=== PATIENT | male | born 1990 | race Caucasian/White ===

== ENCOUNTER 2017-08-02 18:16 | Inpatient (IN) | payer OTHER ==
[2017-08-02] VITALS (8 sets, daily range): BP systolic 143–164; BP diastolic 72–97; PULSE 75–95; RESP 14–17; O2SAT 95–100
[~2017-08-02] VITALS: Ht 180.3 cm; Wt 109.8 kg
[~2017-08-02 18:16] MED LIST: Lactated Ringer's 1,000 ML IV ONE
--- NOTE | 2017-08-02 18:48 | ED.REPORT ---
HPI-General Illness Date of Service Aug 02, 2017 ED Provider: Dr. Zapata The pt is a 27 y/o male with a hx of PTSD with blackouts and seizure disorder who presents to the ED via EMS complaining of waxing and waning diffuse abdominal pain after he swallowed push pins and screws secondary to his PTSD blackout about 7 hours ago. He describes it as 8/10 sharp and aching pain which worsens with movement and palpation. He has not eaten anything since. Associated sx include 2 episodes of diarrhea and hematemesis today. The pt also reports severe anxiety in the ED. He reports recurrent PTSD blackout episodes during which he often does things he does not remember including foreign body ingestion in the past. The pt was last seen for similar sx yesterday at [facility], where his chest and abdomen X-ray yesterday showed numerous metallic foreign bodies within the small bowel without perforation. Nursing Notes Stated Complaint: ABDOMINAL PAIN Nursing Notes Reviewed: Yes Allergies: Coded Allergies: acetaminophen (Verified Allergy, Severe, swelling of the throat, 08/02/17) General Time Seen by MD: 18:48 Chief Complaint Abdominal pain Hx Obtained From: Patient Arrived By: Ambulance Sudden in Onset?: No Onset Occurred: 5 - 8 hours ago Symptom Duration: Waxes and wanes Location: : Abdomen Quality: Aching, Sharp Radiation: : Does not radiate Severity: Current: Pain level 8 out of 10 Severity: Maximum: Severe Recent Healthcare: Recent doctor visit, Recent hospitalization Similar Sx Previous: Yes Past Medical History Past Medical History PTSD Traumatic brain injury Chornic abdominal pain 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 Peptic ulcer disease Depression Multiple hospitalizations for GI bleeds for a variety of reasons including M-W tear, gastritis, bleeding PUD Past Surgical History Multiple abdominal surgeries Reports: Appendectomy Smoking History Current Every Day Smoker Social History Alcohol Use: Denies alcohol use Drug Use: Denies drug use Ambulatory Status Independent Review of Systems Full Review of Systems Constitutional: Denies: Fever Eyes: Denies: Visual loss bilateral Ears / Nose / Throat: Denies: Sore throat Respiratory: Denies: Shortness of breath Cardiovascular: Denies: Chest pain GI: Reports: Abdominal pain, Diarrhea, Hematemesis, Vomiting Male: Denies Hematuria Musculoskeletal: Denies: Back pain Endocrine: Denies: Polyuria Skin: Denies Rash Allergy / Immune: Denies: Itching Neurologic: Denies: Headache Psychiatric: Reports: Anxiety, Unable to control self, Denies: Suicidal ideation Complete sys rev & neg: except as marked. Physical Exam Nursing note and vitals reviewed. Constitutional: Well-developed, well-nourished. Not diaphoretic. Head: Normocephalic and atraumatic. Mouth/Throat: Oropharynx is clear. Mucous membranes are dry. No oropharyngeal exudate. Eyes: EOM are normal. Pupils are equal, round, and reactive to light. Neck: Supple, no tracheal deviation. Cardiovascular: Normal rate, regular rhythm. Equal and intact distal pulses throughout. Pulmonary/Chest: Effort normal and breath sounds normal. No respiratory distress. Abdominal: Soft. No distension. There is moderate tenderness to palpation throughout the abdomen without focal tenderness. There is no rebound or guarding. Bowel sounds present. Musculoskeletal: Range of motion grossly intact, moving all extremities. No edema or tenderness appreciated. Neurological: AOx3. Grossly nonfocal exam. Strength and sensation intact and equal to bilateral upper and lower extremities. Skin: Warm and dry, no rashes or pallor appreciated. Psychiatric: Somewhat flat affect. Denies suicidal ideations. Impulsive. Vital Signs Vital Signs Date Time Temp Pulse Resp B/P Pulse Ox O2 Delivery O2 Flow Rate FiO2 08/02/17 19:30 95 17 148/72 96 Nasal Cannula 2 08/02/17 18:57 36.1 92 15 143/72 95 Room Air Initial VS: Reviewed Interpretation & Diagnostics Lab Results Interpretation Result Diagram: 08/02/17204908/02/172049 ECG Interpretation ECG Interpretation: Normal sinus rhythm. Rate 90. IVCD, consider atypical RBBB Probable left ventricular hypertrophy. Time: 19:35 Interpreted by: ED physician CT Abd / Pelvis Interpretation IMPRESSION: 1. Multiple metallic densities predominantly within the small bowel although there is cecal involvement as described above. Given distribution and appearance of metallic densities, findings are suspicious for ingested foreign bodies. There is no visualized free air or free fluid to indicate gross perforation. Dictated by: Liz Dang M.D. on 08/02/2017 at 19:53 Approved by: Liz Dang M.D. on 08/02/2017 at 19:57 Study type: Abdominal CT IV contrast Interpretation / Wet Read by: Interpret - Radiologist Re-Eval/Medical Decision Med Decision/Clinical Course In summary, 27-year-old male with a history of PTSD and compulsive foreign body ingestions presenting to the ED after ingesting multiple pushpins and other metallic foreign bodies earlier today. Evaluated immediately upon arrival to the ED. Gastroenterology aware of the patient prior to his arrival and Dr. Ellsworth here to evaluate him upon his arrival as well. Patient does have significant tenderness, however unclear if he has landry peritonitis at this time. Obvious concern for perforation. Emergent repeat CT scan obtained on the recommendation of Dr. Ellsworth, which demonstrates multiple metallic densities in the small bowel and in the cecum concerning for ingested foreign bodies, however no visualized free air or free fluid to indicate gross perforation. Patient given IV fluids, Dilaudid, Ativan, Zofran, and Zosyn here in the emergency department. Laboratory studies notable for white blood cell count of 11.1, hemoglobin of 13.3, lactic acid of 3.2. I also discussed the case with Dr. Tamayo. After discussion with Dr. Tamayo, the decision was made to take the patient to the operating room for surgical exploration and likely endoscopy. Patient agreeable to the plan as stated, no further questions. Time of Eval: 19:00 Re-Evaluation/Progress Note: Rechecked the pt. Discussed plan to do a CT. The pt understands and agrees with the plan. All questions answered. Time of Eval: 19:20 Re-Evaluation/Progress Note: Rechecked pt. Discussed diagnosis and plan to admit for surgery. The pt understands and agrees with the plan for admission. All questions addressed. Time of Eval: 19:38 Re-Evaluation/Progress Note: Dr. Worthy at bedside. He will take the pt to the OR. Consultation #1: Referral / Consult Name: Garrett Ellsworth MD Call Returned at: 19:04 Scales Inspector: Agrees with eval, Agrees with plan Note: Dr. Ellsworth recommends CT scan, surgery consult and broad spectrum antibiotics. Consultation #2: Referral / Consult Name: Garrett Worthy MD Consulted With: Surgeon Call Returned at: 19:04 Scales Inspector: Will see patient, Agrees with eval, Agrees with plan Note: Dr. Worthy will see the pt in the ED today. Counseled Regarding: Diagnosis, Lab results, Need for admission Discharge & Departure Primary Impression: Peritonitis (acute) generalized Disposition: ADMITTED TO HOSPITAL Crit Care Except Billable Proc Time Spent: 30-74 minutes Services Performed: Patient management by me, Time spent at bedside, Reviewing test results, Reviewing imaging, Discussing patient care, Documentation in record, Time with fam/surrogate Critical Care Notes: Please see MDM. 35 minutes of critical care time was spent in the management of this patient. Scribe Attestation Portions of this note were transcribed by Ventura Botello. I,, personally performed the history,physical exam and medical decision-making;I reviewed and confirmed the accuracy of the information in the transcribed note. Signed by lAdo Ralph. 08/02/17 Abel Zapata MD Aug 02, 2017 18:48 Ventura Botello Aug 02, 2017 19:02 Ventura Botello Aug 02, 2017 19:02
[2017-08-02] MEDS ORDERED: 0.9% Sodium Chloride 1,000 ML IV ONE (18:55)
[2017-08-02] MEDS ORDERED: Ondansetron 2 mg/mL 2 mL Inj IVPUSH PRN ×3 (18:55→23:20)
[2017-08-02] MEDS ORDERED: HYDROmorphone 1 mg/mL Inj IVPUSH PRN ×2 (18:55→20:35)
[2017-08-02] MEDS ORDERED: Piperacillin-Tazo 3.375 Gm Inj 3.375 GM in Dextrose 5% Minibag Plus 50 ML IV ONE (19:00)
--- NOTE | 2017-08-02 19:59 | DRSVH ---
PROCEDURE: CT ABDOMEN AND PELVIS WITH CONTRAST ([id number]) INDICATIONS: ingested FB; ?perf TECHNIQUE: After the administration of intravenous contrast, 5 mm thick sections acquired from the diaphragm to the symphysis. 5 mm coronal and sagittal reformats were acquired. For radiation dose reduction, the following was used: automated exposure control, adjustment of mA and/or kV according to patient siz e. COMPARISON: None. FINDINGS: Image quality: Excellent. ABDOMEN: Lung bases: Dependent changes are present within the lung bases. Solid organs: Liver is mildly enlarged with steatosis. The spleen is normal in size and enhancement. Gallbladder is unremarkable. Biliary system is non dilated. Pancreas enhances normally. No adren al nodules. Kidneys demonstrate normal size and enhancement, without hydronephrosis. Peritoneum and bowel: Bowel loops demonstrate normal wall thickness and caliber. No free fluid or a ir. Multiple metallic densities are identified throughout the small bowel. The largest focus is iden tified in the jejunum/proximal third portion of the small bowel measuring approximately 23 mm. This a ppears to be a focal area of multiple overlapping metallic densities. There are approximately 15-17 a dditional foci of metallic density identified throughout the small bowel measuring approximately 18 m m in line. There is no visualized free air. There is a metallic density identified within the cecum. Nodes and vessels: No retroperitoneal or mesenteric adenopathy by size criteria. Aorta and inferior vena cava are normal in size. Miscellaneous: No ventral hernias. PELVIS: Genitourinary: Bladder wall thickness is normal. Miscellaneous: No inguinal hernias or adenopathy. Bones: No suspicious bony lesions. No vertebral body compression fractures. IMPRESSION: 1. Multiple metallic densities predominantly within the small bowel although there is cecal involveme nt as described above. Given distribution and appearance of metallic densities, findings are suspicio us for ingested foreign bodies. There is no visualized free air or free fluid to indicate gross perfo ration. Dictated by: Liz Dang M.D. on 08/02/2017 at 19:53 Approved by: Liz Dang M.D. on 08/02/2017 at 19:57
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
[2017-08-02] MEDS ORDERED: MeTOProlol 1 mg/mL 5 mL Inj ONE (20:18)
[2017-08-02] MEDS ORDERED: Ondansetron 2 mg/mL 2 mL Inj ONE (20:18)
[2017-08-02] MEDS ORDERED: fentaNYL-PF 50 mCg/mL 2 mL Inj ONE (20:18)
[2017-08-02] MEDS ORDERED: Propofol 10,000 mCg/mL 20 mL Inj ONE (20:18)
[2017-08-02] MEDS ORDERED: Succinylcholine Chloride 20 mg/mL 5 mL Inj ONE (20:18)
[2017-08-02] MEDS ORDERED: Neostigmine 1 mg/mL 10 mL Inj ONE (20:18)
[2017-08-02] MEDS ORDERED: Glycopyrrolate 0.2 MG/ML 1mL Inj ONE (20:18)
[2017-08-02] MEDS ORDERED: Rocuronium 10 mg/mL 5 mL Inj ONE (20:18)
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
[2017-08-02] MEDS ORDERED: Lactated Ringer's 500 ML IV PRN (20:33)
[2017-08-02] MEDS ORDERED: Lactated Ringer's 1,000 ML IV SCH (20:33)
[2017-08-02] MEDS ORDERED: Phenylephrine 10,000 mCg/mL Inj IVPUSH PRN (20:35)
[2017-08-02] MEDS ORDERED: Dexamethasone 4 mg/mL Inj IVPUSH PRN (20:35)
[2017-08-02] MEDS ORDERED: Atropine 0.4 mg/mL Inj IVPUSH PRN (20:35)
[2017-08-02] MEDS ORDERED: MetoCLOpramide 5 mg/mL 2 mL Inj IVPUSH PRN ×2 (20:35→23:20)
[2017-08-02] MEDS ORDERED: EPHEDrine Sulfate 50 mg/mL Inj IVPUSH PRN (20:35)
[2017-08-02] MEDS ORDERED: Labetalol 5 mg/mL 20 mL Inj IV PRN (20:35)
[2017-08-02] MEDS ORDERED: hydrALAZINE 20 mg/mL Inj IVPUSH PRN (20:35)
[2017-08-02] MEDS ORDERED: fentaNYL-PF 50 mCg/mL 2 mL Inj IVPUSH PRN (20:35)
[2017-08-02] MEDS ORDERED: Lactated Ringer's 1,000 ML IV ONE ×2 (20:41→23:12)
[2017-08-02 21:07] LABS: BASOPHILS % (AUTO) 0.2 % (0-3); EOSINOPHILS % (AUTO) 1.3 % (0-5); MONOCYTES % (AUTO) 6.6 % (4-12); Mean Corpuscular Volume 90.7 fL (81-100); NEUTROPHILS % (AUTO) 66.6 % (40-74); Platelet Count 208 bil/L (150-400)
[2017-08-02 21:26] LABS: INR 1.05 ratio
[2017-08-02 21:31] LABS: Magnesium 1.7 mg/dL (1.6-2.6)
[2017-08-02] MEDS ORDERED: Bupivacaine-MPF 0.5% 30 mL Inj INFILTRATE ONE (21:45)
--- NOTE | 2017-08-02 21:46 | CONS ---
[address] [address] CONSULTATION REPORT PATIENT: HORACIO ALEMAN : 1990 MR#: [id number] ADMIT: 08/02/2017 JOB ID: [id number] DATE OF SERVICE: 08/02/2017 REASON FOR CONSULTATION: Foreign body ingestion. HISTORY OF PRESENT ILLNESS: This is a 27-year-old, male with history of PTSD, seizure disorder, peptic ulcer disease, depression, who presents for consultation for foreign body ingestion. The patient states that this morning he swallowed several screws, push pins and safety pins that were open. The patient states he was having of PTSD attack. The patient states that this happened previously not too long ago and went to [facility] and underwent upper endoscopy in which patient also ingested foreign objects and upper endoscopy was normal. I have no records. The patient never had a colonoscopy. Denies family history of colon cancer, IBD or celiac disease. The patient denies rectal bleeding, nausea, vomiting, hematemesis, change in bowel habits, or unintentional weight loss. PAST MEDICAL HISTORY: As stated above. PAST SURGERIES: None. ALLERGIES TO MEDICATIONS: None. SOCIAL HISTORY: The patient denies smoking, alcohol. FAMILY HISTORY: Negative for colon cancer, IBD, or celiac disease. REVIEW OF SYSTEMS: The patient denies headache, blurred vision, nausea, vomiting, chest pain, shortness of breath. Positive for abdominal pain. No skin rash or joint pain. PHYSICAL EXAMINATION: Vital signs upon presentation: Temperature is 36.1 pulse 92, blood pressure 143/73, respiratory rate 14, satting 95% in room air. General: No apparent stress. Scars: Anicteric. Throat: Supple. Lungs: Clear to auscultation bilaterally. Cardiovascular; Regular rate. Abdomen soft, mildly distended. Diffuse pain on palpation especially in the epigastric region, normoactive bowel sounds. Extremities: No cyanosis, clubbing, or edema. CT scan of the abdomen pelvis with contrast, performed on August 02, 2017, shows multiple metallic densities, small bowel, mostly which appears to be in the third or fourth portion of the duodenum and several metallic densities seen in the cecum. No perforation is seen. ASSESSMENT AND PLAN: This is a 27-year-old, male history of posttraumatic stress disorder, seizure disorder, presents here for foreign body ingestion. I have spoken with Dr. Garrett Alas, the surgeon on-call for today and the plan is the patient will go to the OR to do an exploratory laparotomy to ensure that there is no perforation. Afterwards, we would use a pediatric colonoscope to try to retrieve any foreign body that is seen, if possible. RECOMMENDATIONS: 1. Please keep n.p.o. 2. Appreciate Dr. Garrett Worthy from General Surgery recommendations. 3. We will do an push enteroscopy with a pediatric colonoscope to try to remove any foreign body that may be visualized. PHILL
--- NOTE | 2017-08-02 23:56 | PCM.ANEP1 ---
Post Anesthesia PACU Phase 1 Assessment Date of Service: Aug 02, 2017 Vital Signs Vital Signs Date Time Temp Pulse Resp B/P Pulse Ox O2 Delivery O2 Flow Rate FiO2 08/02/17 19:30 95 17 148/72 96 Nasal Cannula 2 08/02/17 18:57 36.1 92 15 143/72 95 Room Air Anesthetic Administered: GA Level of Alertness: Sleeping, hard to arouse ARROYO's with Equal Strength: Yes Pain: No Pain Scale Score: 8 Nausea or Vomiting: No CV Function & Hydration Stable: Yes Airway Device: Oralpharangeal Airway Oxygen Delivery: Simple Mask Lungs: Normal Air Movement PACU Phase 2 Assessment Complications: No Follow up Care: N/A Patient Instructions Provided: N/A Dionicio Lambert MD Aug 02, 2017 23:56
[2017-08-03] VITALS (11 sets, daily range): BP systolic 124–155; BP diastolic 72–96; PULSE 77–98; RESP 12–16; O2SAT 92–99
[2017-08-03] MEDS: Dextrose 5% Lactated Ringer's 1,000 ML IV SCH ×3 (00:50→21:04)
[2017-08-03] MEDS: HYDROmorphone 1 mg/mL Inj IVPUSH PRN ×8 (02:13→23:08)
--- NOTE | 2017-08-03 05:20 | ENDO ---
[address] [address] ENDOSCOPY PROCEDURE PATIENT: HORACIO ALEMAN : 1990 MR#: [id number] ADMIT: 08/02/2017 JOB ID: [id number] DATE OF SERVICE: 08/02/2017 OPERATION: Push enteroscopy with removal of foreign body. PREOPERATIVE DIAGNOSIS: Foreign body ingestion. POSTOP DIAGNOSIS: Removal of four screws, two safety pins, three push pins, one wall staple. ANESTHESIA: General anesthesia. COMPLICATIONS: None. BLOOD LOSS: Minimal. DESCRIPTION OF PROCEDURE: After risks and benefits were explained to the patient, and informed consent was obtained, the patient was undergoing an ex lap in the operating room. After the ex lap was performed, a push enteroscopy was then performed. Intubated the mouth and the esophagus, the patient is intubated through the stomach into the fourth portion of the duodenum. After procedure was done, the scope was withdrawn and the procedure terminated. FINDINGS: Upon entering the esophagus, esophagus appeared normal without masses, ulcers or lesions. Z-line located 40 cm from incisors. Upon entering the stomach, the stomach also appeared normal without masses, ulcers or lesions. Retroflexion did not elucidate any evidence of foreign bodies. Upon entering the duodenum, the scope was advanced to the third to fourth portion in which four screws, three push pins, two safety pins which were open and a wall stable was identified. Using a agarwal, the various pieces were then captured by using a Cox net and an alligator forceps, and they were advanced into the agarwal and were carefully pushed into the agarwal, and the scope was then retracted in which the agarwal captured the objects and were removed safely. After all the objects were performed, the push pediatric colonoscope was then advanced again all way to the third to fourth portion to ensure there is no for other foreign body. After the procedure was done, the scope was withdrawn and the procedure terminated. IMPRESSIONS: Removal of foreign body which four screws, 3 push pins, two safety pins open and a wall staple were all removed endoscopically using a agarwal technique placed at the end of the scope and captured via a Cox net or an alligator forceps. RECOMMENDATIONS: Recommendations per general surgery consultation team. We appreciate Dr. Garrett Worthy and general surgery team in taking care of this patient with the GI team. PHILL
--- NOTE | 2017-08-03 05:42 | OP ---
[address] [address] OPERATIVE REPORT PATIENT: HORACIO ALEMAN : 1990 MR#: [id number] ADMIT: 08/02/2017 JOB ID: [id number] DATE OF SURGERY: 08/02/2017 PREOPERATIVE DIAGNOSIS(ES): Peritonitis, ingested foreign body. POSTOPERATIVE DIAGNOSIS(ES): Ingested foreign body without peritonitis and without perforation. SURGEON: Garrett Worthy MD and Brian Kline DO PROCEDURE: Laparoscopy with lysis of adhesions, facilitation of the intraoperative esophagogastroduodenoscopy with foreign body removal. INDICATIONS: This is a 27-year-old male who presents with foreign body ingestion, transferred from [facility]. In the emergency department, he gives a history of progressive abdominal pain, and is diffusely tender to palpation and percussion with some peritoneal signs, but without frankly rigid abdomen. After his CT scan demonstrates multiple foreign bodies with the largest bolus being at the 4th portion of the duodenum, but several areas in the small intestine that appeared to have foreign body imbedded in the small bowel wall. Given his examination with peritoneal signs, my concern is that he has early peritonitis and I have recommended a laparoscopic exploration with possible laparotomy and possible intraoperative endoscopy. FINDINGS: 1. assistant fitness manager was medically necessary for camera operation and retraction. 2. We found several focal areas with palpable and visible foreign bodies at laparoscopy from the ligament of Treitz down to the ileocecal valve. There was no sign of small bowel perforation and all of these intraluminal foreign bodies were able to be milked distally down towards the ileocecal valve. 3. At the completion of our laparoscopy, Dr. Ellsworth performed intraoperative EGD with removal of multiple foreign bodies from the 4th portion of the duodenum. This will be dictated under separate cover. PROCEDURE: The patient was brought to the operating room. General anesthetic was administered. The SCOAP protocol was followed. He had received perioperative Zosyn in the emergency department within one hour of our incision. The scope protocol was followed. The abdomen was prepped and draped in sterile fashion. Surgical time-out was performed. I elected not to place a Grace. We began with a Veress needle and obtained CO2 pneumoperitoneum. We then placed a periumbilical port, followed by the camera. There was minimal free fluid in the abdomen. There was no obvious perforation or inflammatory process. The bladder appeared quite full. We placed three additional ports and this allowed us to retract the transverse mesocolon upward and expose the ligament of Treitz. There was an area of odd inflammatory focus between the small bowel mesentery and the transverse mesocolon that we ended up taking down and it appeared not to be associated with any bowel lumen problem. The source was unclear. We now began running the small bowel from the ligament of Treitz distally. In the proximal jejunum, we encountered an intraluminal foreign body that we could actually see tenting through the small bowel wall. By elevation of the proximal small bowel and gentle manipulation, this foreign body moved down through the lumen of the small bowel and "milked" forcing the foreign body down distally. We now continued and demonstrated that this foreign body did not have small-bowel perforation nor was at stuck in the small bowel wall, and we left this here feeling that the best course was to leave it to be passed with peristalsis. We now ran the entire small bowel carefully from the ligament of Treitz down to the ileocecal valve encountering at least three other intraluminal metallic objects. When we got to the ileocecal valve, we stopped and went back to the ligament of Treitz. We took down the ligament of Treitz partially, and could actually visualize the intraluminal metallic objects in the 4th portion of the duodenum pushing up against the wall, but not through it. There was no sign of perforation back by the 4th portion the duodenum. We therefore proceeded to facilitate upper esophagogastroduodenoscopy by occluding the small bowel just distal to the ligament of Treitz with an atraumatic bowel clamp. This allowed for more direct insufflation of the stomach and the proximal duodenum and Dr. Ellsworth proceeded with upper endoscopy and removal of foreign bodies. His portion of the procedure will be dictated under separate cover. At the completion of his procedure, we looked once again in the abdomen. There was enough small bowel gaseous distention that we could not run the entire small bowel again, but there was no sign of intra-abdominal leak or small bowel leak. We therefore let our CO2 out and closed the wounds with absorbable suture. The patient awoke in the operating room and was transferred to the recovery room without complications. Postoperative abdominal film is pending at the time of this dictation.
--- NOTE | 2017-08-03 06:15 | PCM.PNSURG ---
Subjective Date of Service: Aug 03, 2017 Date of Service: Aug 03, 2017 Subjective: s/p ex lap and push enteroscopy with foreign body removal last night. pt complains of abdominal pain. Postop General: No Complaints Objective Vital Sign- Last 8 Hours Date Time Temp Pulse Resp B/P Pulse Ox O2 Delivery O2 Flow Rate FiO2 08/03/17 05:49 36.8 95 16 130/72 95 Nasal Cannula 0.50 08/03/17 00:56 Supplement Oxygen 08/03/17 00:56 Supplement Oxygen 08/03/17 00:25 90 12 150/89 96 Nasal Cannula 2 08/03/17 00:20 94 14 143/85 96 Nasal Cannula 2 08/03/17 00:15 90 13 147/83 96 Nasal Cannula 2 08/03/17 00:10 80 14 150/85 96 Nasal Cannula 2 08/03/17 00:05 36.2 77 14 155/96 99 Nasal Cannula 2 08/03/17 00:00 84 15 149/88 99 Nasal Cannula 3 08/02/17 23:56 Simple Mask 08/02/17 23:55 84 14 163/93 100 Nasal Cannula 3 08/02/17 23:52 36.3 88 15 143/97 100 Nasal Cannula 3.00 08/02/17 23:50 80 15 161/90 100 Simple Mask 8 08/02/17 23:45 75 15 161/97 100 Simple Mask 8 08/02/17 23:40 79 14 161/95 100 Simple Mask 8 08/02/17 23:35 36.0 76 14 164/90 100 Simple Mask 8 Intake and Output- Last 8 Hour 08/03/17 Cumulative From/Thru 07:00 08/02/17 00:20 - 08/03/17 05:02 Intake Total 702 ml 2802 ml Output Total 900 ml 902 ml Balance -198 ml 1900 ml Intake IV Total 702 ml 2802 ml Output Urine Total 900 ml 900 ml Estimated Blood Loss 2 ml General: Oriented X3 Neck: Supple Lungs: Clear to Auscultation Heart: Exam Unremarkable Abdomen: Benign, Soft, Appropriately tender, Non-distended Extremities: Distal Pulses Palpable Result Diagram: 08/02/17204908/02/172049 Assessment & Plan Impression This is a 27-year-old, male history of posttraumatic stress disorder, seizure disorder, presents here for foreign body ingestion. s/p ex lap and lysis adhesions and push enteroscopy with foreign body removal push enteroscopy 08/02- IMPRESSIONS: Removal of foreign body which four screws, 3 push pins, two safety pins open and a wall staple were all removed endoscopically using a agarwal technique placed at the end of the scope and captured via a Cox net or an alligator forceps. RECOMMENDATIONS: Recommendations per general surgery consultation team. We appreciate Dr. Garrett Worthy and general surgery team in taking care of this patient with the GI team. RECOMMENDATIONS: 1. Pain control per hospitalist team 2. Diet and recs per Gen surgery. Problems: Resuscitation Status: CPR: Attempt Resuscitation Garrett Ellsworth MD Aug 03, 2017 06:15
[2017-08-03 06:37] LABS: BASOPHILS % (AUTO) 0.2 % (0-3); MONOCYTES % (AUTO) 8.1 % (4-12); Mean Corpuscular Hemoglobin 31.7 pg (27.0-35.0); Mean Corpuscular Volume 91.4 fL (81-100); NEUTROPHILS % (AUTO) 72.1 % (40-74); Platelet Count 212 bil/L (150-400)
--- NOTE | 2017-08-03 07:18 | NUR ---
Postop Pt arrived from PACU at 0035, drowsy but arrousable. Pt reports abdominal pain at 8/10, Oxycodone and IV Dilaudid given, effective. Pt very apologetic and anxious, very worried about what people might think of him. In AM pt wanted to leave AMA because he was afraid that his meds were going to get "messed up". Pt was convinced by staff to stay and pt agrees for now. Sitter in room at all times and sharps container removed from room.
[2017-08-03] MEDS ORDERED: levETIRAcetam 500 mg Tablet PO SCH ×2 (08:30)
[2017-08-03] MEDS ORDERED: Polyethylene Glycol (PEG) 17 Gm Powder PO SCH (08:30)
[2017-08-03] MEDS ORDERED: Famotidine Inj 20 MG in IV Premix 1 EACH IV SCH (08:30)
--- NOTE | 2017-08-03 08:32 | PCM.PNSURG ---
Subjective Date of Service: Aug 03, 2017 Date of Service: Aug 03, 2017 Visit Information: Post-Op Day # 1 Date of Admission: Aug 02, 2017 at 20:17 Hospital Day # 1 Subjective: Feels anxious this morning but affect is unchanged. Apologizes for being in pain and doesn't want to ask for medicine too frequently. Endorses continued abdominal discomfort, no N/V or bowel function overnight. Conrad remains. No acute events post operatively. Required some oxygen overnight but now weaned off. Denies any desires to harm himself. Sitter at bedside. Objective Vital Sign- Last 8 Hours Date Time Temp Pulse Resp B/P Pulse Ox O2 Delivery O2 Flow Rate FiO2 08/03/17 07:57 36.6 92 16 135/90 92 Room Air 0.00 08/03/17 05:49 36.8 95 16 130/72 95 Nasal Cannula 0.50 08/03/17 00:56 Supplement Oxygen 08/03/17 00:56 Supplement Oxygen 08/03/17 00:25 90 12 150/89 96 Nasal Cannula 2 Intake and Output- Last 8 Hour 08/03/17 Cumulative From/Thru 06:58 08/02/17 00:20 - 08/03/17 05:02 Intake Total 702 ml 2802 ml Output Total 900 ml 902 ml Balance -198 ml 1900 ml IV Total 702 ml 2802 ml Output Urine Total 900 ml 900 ml Estimated Blood Loss 2 ml General: Alert, No Acute Distress, Other (Flat affect unchanged from initial encounter.) Lungs: Other (Breathing comfortably on room air.) Heart: Other (Non tachycardic) Abdomen: Other (Soft, no rigidity, incision sites are c/d/i with telfa/ tagederm and no drainage. No surrounding cellulitis. Moderately distended. No bowel tones.) Neuro: Grossly Neurologically Intact, Other (Monotone.) Catheters: Urethral 2 Way Conrad Result Diagram: 08/03/1744 08/03/1744 Diagnostics: Morning KUB not taken yet. Assessment & Plan Impression 27 yo M with PTSD, history of foreign body ingestion, seizure disorder 2/2 TBI and POD#1 from diagnostic laparoscopic with lysis of adhesions and no evidence of bowel perforation and EGD with foreign body retrieval from duodenum 2/2 ingestion of screws/pins/nails. Recovering well on POD#1. Problems: Plan - Medical hospitalist consult to assist with management of seizure disorder medications and pyschiatric history (TBI, anxiety, recurrent foreign body ingestions) - Pain: Prn ibuprofen, oxycodone. Discontinue IV pain medications. - FEN/GI: Continue mIVF until taking adequate PO then d/c. Full liquid diet. Bowel regimen senna-docusate and miralax BID scheduled. Daily KUB to track passage or remaining foreign bodies until clearance. Home daily pantoprazole for GERD symptoms. - CV/P: No issues - Psych: Continue sitter at bedside. Low risk of self harm but history of blackout episodes with impulsive behavior - needs to be monitored. Home deena, olanzapine, also takes phenytoin but dosing is unclear and not on MAR, defer management of seizure medications to hospitalist team. Has a seizure every few months or so per patient. - MSK: Ambulate TID - Renal: D/c conrad this AM - Dispo: Cannot discharge until passes all foreign bodies. Unclear whether anyone is at home with him, he says "some of the time", will get social work consult to help navigate and pending possible psychiatric evaluation Resuscitation Status: CPR: Attempt Resuscitation Brian Kline MD Aug 03, 2017 08:32 Vikas Simpson MD Aug 04, 2017 10:36 Brian Kline MD Aug 03, 2017 08:32
[2017-08-03] MEDS: PHENYTOIN 25 MG/ML PO SCH ×3 (08:52→20:35)
[2017-08-03] MEDS: Senna-Docusate 8.6-50 mg Tablet PO SCH (08:56)
--- NOTE | 2017-08-03 09:19 | DRSVH ---
PROCEDURE: X-RAY KUB ([id number]) INDICATIONS: s/p foreign body retrieval, assess baseline TECHNIQUE: One view of the abdomen acquired. COMPARISON: [facility], CT, CT ABD PELVIS W CON, 08/02/2017, 19:06. FINDINGS: Surgical changes and devices: None. Bowel: Bowel gas pattern demonstrates mild dilated appearance. Multiple linear metallic densities ar e present overlying the bowel, corresponding to densities identified on CT exam of 08/02/17. Soft tissues: No suspicious abdominal calcifications. Visualized solid organ contours appear normal in size. Bones: No suspicious bony lesions. IMPRESSION: Mild dilated appearance of small bowel suspicious for ileus versus developing partial sma ll bowel obstruction. Multiple linear metallic densities are noted overlying the bowel corresponding to CT findings of suspected ingested foreign bodies. Dictated by: Liz Dang M.D. on 08/03/2017 at 9:14 Approved by: Liz Dang M.D. on 08/03/2017 at 9:17
--- NOTE | 2017-08-03 09:27 | DRSVH ---
PROCEDURE: X-RAY KUB ([id number]) INDICATIONS: s/p foreign body retrieval, assess baseline TECHNIQUE: One view of the abdomen acquired. COMPARISON: [facility], CR, XR KUB, 08/02/2017, 23:50. FINDINGS: Surgical changes and devices: None. Bowel: Bowel gas pattern demonstrates slight prominence of small bowel loops. The previously identif ied scattered metallic densities predominantly overlying the small bowel are noted now overlying the region of the right colon. Soft tissues: No suspicious abdominal calcifications. Visualized solid organ contours appear normal in size. Bones: No suspicious bony lesions. IMPRESSION: Less prominent appearance of small bowel dilation compared to prior exam. Previous metall ic density suspected to represent foreign bodies are now overlying the right colon. Dictated by: Liz Dang M.D. on 08/03/2017 at 9:25 Approved by: Liz Dang M.D. on 08/03/2017 at 9:26
[2017-08-03] MEDS ORDERED: PHN100C PO (09:28)
[2017-08-03] MEDS ORDERED: OLAN10TA19 PO (09:28)
[2017-08-03] MEDS ORDERED: OMEP20CA11 PO (09:28)
[2017-08-03] MEDS ORDERED: KLO1T PO (09:28)
[2017-08-03] MEDS ORDERED: DEP500A PO (09:28)
[2017-08-03] MEDS ORDERED: OXYC-474 PO (09:28)
[2017-08-03] MEDS ORDERED: LEVE750T16 PO (09:28)
--- NOTE | 2017-08-03 10:39 | PCM.CHPMED ---
Subjective Date of Service: Aug 03, 2017 Primary Physician: Admitting Physician: Garrett Worthy MD Primary Care Physician: Other,Physician Attending Physician: Garrett Worthy MD Chief Complaint: Chief Complaint: FB ingestion History of Present Illness: 27-year-old male with history of multiple episode of foreign body ingestion, TBI , depression, PTSD, anxiety, seizure disorder, chronic abdominal pain with cyclic vomiting syndrome presented after he swallowed push pains and screws secondary to his PTSD attack, black out. 7 hours prior to admission, patient stated that as soon as he realized that he swallowed this foreign bodies, immediately called EMS. On initial evaluation patient had severe abdominal pain , x-ray confirmed numerous metallic foreign bodies within the small bowel without bowel perforation. Patient underwent laparoscopic surgery with endoscopy, and bodies were all removed safely by surgical service and GI service. Medicine was consulted to assess patient's medical problems, possibly neuropsychiatric evaluation. Of note, pt was first presented to [facility], according to records , pt had similar episode of FB ingestion in Jun and Jan of this year, which was believed to be from depression, PTSD. also noted that pt had numerous ED visit in [facility] 15times this year and also 3times to [facility]. During the interview, patient stated that he was severely depressed for a while although he sees his psychiatrist at [facility] weekly. There was no medication changes, he has his pillbox and arranged his medications, pretty compliant to hold his medications including Zyprexa, Klonopin. Patient denied having any suicidal ideation during the episodes and currently or homicidal ideation. Patient complained of postsurgical pain, diffusely 8 out of 10, denied any nausea, vomiting, shortness of breath. Patient was mildly drowsy but oriented 3, pain regimen is OxyContin 5 mg every 4, Dilaudid 0.5 mg every 2 when necessary, patient was wondering if she can ask for pain medicine because of this pain, but does not want to be seen as a drug seeker. Dr. Bean from psychiatry was consulted Review of Systems: Pertinent positives as noted in history of present illness. All other systems were reviewed and are negative PMH Past Medical History PMH/PSH As described above in history of present illness SH history of all colon abuse and marijuana abuse, denied any drug use, but admit occasional alcohol drinking Bedside Blood Glucose: 110 Allergies: Coded Allergies: acetaminophen (Verified Allergy, Severe, swelling of the throat, 08/02/17) Social History Hx Alcohol Use: NoHx Substance Use: NoHx Tobacco Use: Yes (Occasional cigarette use) Smoking Status: Current Every Day Smoker Exam Vital Signs Vital Sign - Last Date Time Temp Pulse Resp B/P Pulse Ox O2 Delivery O2 Flow Rate FiO2 08/03/17 07:57 36.6 92 16 135/90 92 Room Air 0.00 Intake and Output 08/02/17 08/02/17 08/03/17 Cumulative From/Thru 15:00 23:00 07:00 08/02/17 00:20 - 08/03/17 05:02 Intake Total 2000 ml 702 ml 2802 ml Output Total 2 ml 900 ml 902 ml Balance 1998 ml -198 ml 1900 ml IV Total 2000 ml 702 ml 2802 ml Output Urine Total 900 ml 900 ml Estimated Blood Loss 2 ml 2 ml Additional Information: well groomed, white young male, laying down, mildly distressed with pain no JVD, MMM, no LAD RRR, nl s1, s2 no mrg CTAB, no w,c S,ND, diffuse td, post-Laparoscopic scars sterily tapped warm, no edema, pulses 2/2 Lab and Diagnostics Result Diagram: 08/03/17 0544 08/03/17 0544 Assessment & Plan Assessment 27-year-old male with history of multiple episode of foreign body ingestion, TBI , depression, PTSD, anxiety, seizure disorder, chronic abdominal pain with cyclic vomiting syndrome presented after he swallowed push pains and screws secondary to his PTSD attack, black out. Given recurrent episode of FB ingestion , reported severe depression, pt likely benefit from comprehensive psychiatric evaluation. Pt remained seizure free since admission. no signs of systemic infection.Intraoperative findings didn't show perforation. -appreciate for psychiatric evaluation, continue home Zyprexa, Klonipin for now -continue home AEDs, dilantin, Keppra, neurocheck q4h per RN. -1:1 observation seems appropriate for now, restrain as needed per nursing staff eval -post-op pain management per surgical team, Oxycodone 5mg q4h prn, dilaudid 0.5mg q2h prn seems appropriate for now. Thank you very much for allowing us to participate in this patient's care. The hospitalist team will continue to follow this patient with you and will be available for any additional questions or concerns. Problems: Resuscitation Status: CPR: Attempt Resuscitation Time spent 65min Isis Black MD Aug 03, 2017 10:39
--- NOTE | 2017-08-03 12:08 | NUR ---
Social Work: Initial Assessment/Multidisciplinary Rounds D: EMR reviewed. Please see Initial Assessment linked to this note for more information. Pt is a 27 y/o male admitted Adal - readmit risk score not assigned - for peritonitis/viscous perforation per H&P. Pt's insurance is [facility] [email or web address]. PCP is Lynnette Wilkes MD. SW met with pt at bedside to conduct initial assessment. Pt was alert and oriented x3. SW explained role and wrote phone number on white board. SW provided [facility] Discharge Planning Checklist and encouraged pt to contact SW for any discharge planning questions. Pt discussed in multidisciplinary rounds. Pt is not medically stable for discharge at this time, MD placed Psychiatry consult. SW discussed consult with MD - Psychiatry ordered for evaluation - MD stated Psychiatry to see pt for MH consult. Based on MD order to Psychiatry to see pt, and no MD orders for MH assessment, SW to determine further discharge planning pending Psychiatric consult, no MD orders received. SW will continue to follow. Pt lives at home with his parents in [place]. Pt lives in a tri-level home with 10 stairs to enter and 10 stairs to each level. Pt has no hx at a SNF or with HH. Pt does not own or use any DME. Pt does not drive. Pt ambulates independently. Pt has dx of PTSD and TBI at baseline. Pt reports he was admitted to [facility] twice in the last year, the first time involuntarily for 7 days, the second time voluntarily for 3 days. Pt states he is on LR and is to continue following-up with MH counselor through [facility] (Deneen Munguia in [place]). Pt states his next appointment is on 08/06. Pt stated "I called the hospital after swallowing the needles because I had a PTSD attack and did not really want to . Pt stated he could have "not called the hospital and bled out but he called 911 because he made a mistake and had a PTSD attack." SW asked if pt had any concerns regarding discharge - pt declined. Pt states his Aunt [phone] works at [facility] and will provide transport at time of discharge. Pt gave verbal consent to contact Aunt [phone] for discharge planning. Pt did not give consent to contact father listed as NOK for any purpose. SW to follow-up with Aunt regarding discharge plan. A: Pt who has dx of PTSD and TBI at baseline, pt to be seen by psychiatry as ordered by MD - capacity for self care to be addressed after psychiatry consult. P: Pt anticipated to discharge with Aunt to transport via POV, pending Psychiatric consult. MD stated Psych to see pt for MH consult. Based on MD order to psychiatry to see pt, and no MD orders for MH assessment, SW to determine further discharge planning pending psychiatric consult, no MD orders received. SW will continue to follow. HERNÁN Harrison Addendum: 08/03/17 at 1224 by JEREMIAH MARS Amended: Links added.
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
--- NOTE | 2017-08-03 18:09 | NUR ---
BM/SAN/AMBULATION/MOOD Patient's Lactic 3.2 MD aware, Blood cultures drawn. San catheter removed in am and patient voiding in bathroom. Psy consult done, Dr Anderson to adjust medications, Med rec completed today information from patient's pharmacy. Patient appears anxious at times, visit with father calmed him down, sitter at all times. Patient has ambulated in garcia x3 today, one liquid BM, daily abdomen x-ray to monitor progress to foreign objects in GI. Addendum: 08/04/17 at 0746 by PETE MILLER RN Pain Patient asking for pain medication for abdominal pain regularly this shift. Up ambulating around floor multiple times before bed. Steady on feet. Patient A&OX3. Vitals stable.
[2017-08-04] MEDS: HYDROmorphone 1 mg/mL Inj IVPUSH PRN ×2 (03:22→05:37)
[2017-08-04 05:20] VITALS: BP 125/81; PULSE 93; RESP 16; O2SAT 92
--- NOTE | 2017-08-04 07:03 | PCM.PNSURG ---
Subjective Date of Service: Aug 04, 2017 Date of Service: Aug 04, 2017 Visit Information: Post-Op Day # 2 Date of Admission: Aug 02, 2017 at 20:17 Hospital Day # 2 Subjective: No acute events overnight. Tolerating liquid diet without abdominal pain, nausea or vomiting. Evaluated by medical and psych teams yesterday. Psych feels appropriate for discharge to current environment, well connected with [place] mental health services and should continue current plan for DBT therapy. Multiple loose bowel movements and passing gas yesterday. Pain well controlled. KUB this AM shows passage of all foreign bodies into the colon, in the cecum right now. Objective Vital Sign- Last 8 Hours Date Time Temp Pulse Resp B/P Pulse Ox O2 Delivery O2 Flow Rate FiO2 08/04/17 05:20 37.2 93 16 125/81 92 Room Air Intake and Output- Last 8 Hour 08/04/17 Cumulative From/Thru 06:58 08/02/17 00:20 - 08/04/17 06:51 Intake Total 4522 ml 47669 ml Output Total 2725 ml 5302 ml Balance 1797 ml 7876 ml Intake Oral 4522 ml 9076 ml IV Total 4102 ml Output Urine Total 2725 ml 5300 ml Estimated Blood Loss 2 ml # Voids 1 1 # Bowel Movements 1 2 General: Alert, Oriented X3, Cooperative Lungs: Other (Breathing comfortably on room air.) Heart: Regular Rate/Rhythm Abdomen: Soft, Appropriately tender, Non-distended, Other (Incisions are c/d/i without erythema.) Neuro: Grossly Neurologically Intact Catheters: None Result Diagram: 08/03/17 0544 08/03/17 0544 Assessment & Plan Impression 27 yo M with PTSD, history of foreign body ingestion, seizure disorder 2/2 TBI and POD#1 from diagnostic laparoscopic with lysis of adhesions and no evidence of bowel perforation and EGD with foreign body retrieval from duodenum 2/2 ingestion of screws/pins/nails. Recovering well on POD#2 with continued movement of remaining objects into likely the cecum. Problems: Plan - Appreciate medical hospitalist and psychiatric consults to assist with management of seizure disorder medications and pyschiatric history (TBI, anxiety , recurrent foreign body ingestions) - Pain: Prn ibuprofen, oxycodone. - FEN/GI: Regular diet. Bowel regimen senna-docusate and miralax BID scheduled. Daily KUB PA/Lateral to track passage of remaining foreign bodies until clearance. Home daily pantoprazole for GERD symptoms. - CV/P: No issues - Psych: Continue 1:1 sitter at bedside. Low risk of self harm but history of blackout episodes with impulsive behavior. Continue home meds. Remeron started per Psych recs. - MSK: Ambulate TID - Renal: Voiding - Dispo: Cannot discharge until passes all foreign bodies, hopefully tomorrow. Well connected with [place] psychiatric services and ongoing care, starting DBT therapy on 08/15. Resuscitation Status: CPR: Attempt Resuscitation Brian Kline MD Aug 04, 2017 07:03 Vikas Simpson MD Aug 04, 2017 10:44
[2017-08-04 08:32] VITALS: BP 131/55; PULSE 85; RESP 16; O2SAT 92
[2017-08-04] MEDS: Pantoprazole 40 mg ER24 Tablet PO SCH (08:49)
[2017-08-04] MEDS: Senna-Docusate 8.6-50 mg Tablet PO SCH (08:49)
[2017-08-04] MEDS: PHENYTOIN 25 MG/ML PO SCH ×3 (08:50→21:22)
--- NOTE | 2017-08-04 09:29 | PCM.PNMED ---
Subjective Date of Service Aug 04, 2017 Subjective pt remained stable, still has significant pain on abd, awaits passing FB per surgery Remeron was added per pt denied SI, HI, remained afebrile, no reported seizure, Exam Vital Signs Vital Sign - Last Date Time Temp Pulse Resp B/P Pulse Ox O2 Delivery O2 Flow Rate FiO2 08/04/17 08:32 36.8 85 16 131/55 92 Room Air 0.00 Intake and Output 08/03/17 08/03/17 08/04/17 Cumulative From/Thru 15:00 23:00 07:00 08/02/17 00:20 - 08/04/17 06:51 Intake Total 800 ml 5054 ml 5819 ml 72995 ml Output Total 325 ml 1350 ml 2725 ml 5302 ml Balance 475 ml 3704 ml 3094 ml 9173 ml Intake Oral 800 ml 3754 ml 4522 ml 9076 ml IV Total 1300 ml 1297 ml 5399 ml Output Urine Total 325 ml 1350 ml 2725 ml 5300 ml Estimated Blood Loss 2 ml # Voids 1 1 # Bowel Movements 1 1 2 Exam NAD, sleepy no JVD, MMM, no LAD RRR, nl s1, s2 no mrg CTAB, no w,c S,ND, diffuse td, post-Laparoscopic scars sterily tapped warm, no edema, pulses 2/2 IVs and Medications Medications Reviewed: Medications were reviewed in detail Lab and Diagnostics Result Diagram: 08/03/1744 08/03/1744 Assessment & Plan Assessment 27-year-old male with history of multiple episode of foreign body ingestion, TBI , depression, PTSD, anxiety, seizure disorder, chronic abdominal pain with cyclic vomiting syndrome presented after he swallowed push pains and screws secondary to his PTSD attack, black out. Given recurrent episode of FB ingestion , reported severe depression, pt likely benefit from comprehensive psychiatric evaluation. Pt remained seizure free since admission. no signs of systemic infection.Intraoperative findings didn't show bowel perforation. -appreciate for psychiatric evaluation, continue home Zyprexa, Klonipin prn, added Remeron. -continue home AEDs, dilantin, Keppra, neurocheck q4h per RN. -1:1 observation seems appropriate for now, -post-op pain management per surgical team, Oxycodone 5mg q4h prn, dilaudid 0.5mg q2h prn seems appropriate for now. -diet advanced to general per surgery team dispo: likely depends on surgical course, expect to pass all of FB per surgery. Thank you very much for allowing us to participate in this patient's care. The hospitalist team will continue to follow this patient with you and will be available for any additional questions or concerns. Resuscitation Status: CPR: Attempt Resuscitation Time spent 35min Isis Black MD Aug 04, 2017 09:29
--- NOTE | 2017-08-04 10:33 | DRSVH ---
PROCEDURE: X-RAY ABDOMEN WITH ERECT AND/OR DECUBITUS VIEWS ([id number]) INDICATIONS: tracking foreign bodies passing TECHNIQUE: 2 views of the abdomen were acquired. COMPARISON: [facility], CR, XR KUB, 08/03/2017, 9:10. [facility], CR, XR KUB , 08/02/2017, 23:50. [facility], CR, XR SURG FLOURO EA 30 MIN, 08/02/2017, 21:05. [facility], CT, CT ABD PELVIS W CON, 08/02/2017, 19:06. FINDINGS: Surgical changes and devices: None. Bowel: No pneumoperitoneum. The bowel gas pattern is normal. Multiple metallic densities remain ov erlying the right colon, unchanged compared to prior exam. Soft tissues: No masses; visualized solid organ contours appear normal in size. No suspicious abdom inal calcifications. Bones: No suspicious bony abnormalities. IMPRESSION: Unchanged appearance of metallic densities overlying the right colon. Dictated by: Liz Dang M.D. on 08/04/2017 at 10:30 Approved by: Liz Dang M.D. on 08/04/2017 at 10:31
[2017-08-04 11:56] VITALS: BP 137/75; PULSE 105; RESP 18; O2SAT 92
--- NOTE | 2017-08-04 13:49 | NUR ---
PAIN/ANXIETY Patient pain appears controlled at this time with PO Oxycodone 5mg Q4. Patient received 600mg Ibuprofen today x1 as well. Patient has been resting and sleeping in bed most of shift so far, has had one dream with awakening abruptly sweating. No anxiety medications needed so far. Patient ambulated in garcia x1, one bout of liquid stool, and tolerating general diet well.
[2017-08-04 19:09] VITALS: BP 130/83; PULSE 84; RESP 16; O2SAT 94
--- NOTE | 2017-08-04 21:09 | DRSVH ---
PROCEDURE: X-RAY ABDOMEN, ONE VIEW ([id number]) INDICATIONS: tracking foreign bodies TECHNIQUE: One view of the abdomen acquired. COMPARISON: [facility], CR, XR ABD W ERECT + OR DECUB 2 VW, 08/04/2017, 4:27. FINDINGS: Surgical changes and devices: None. Bowel: Bowel gas pattern is normal. Multiple metallic densities are noted overlying the ascending c olon as previously noted. However, a single metallic density is now identified in the distal descendi ng colon. Soft tissues: No suspicious abdominal calcifications. Visualized solid organ contours appear normal in size. Bones: No suspicious bony lesions. IMPRESSION: Metallic density progression as above. Dictated by: Liz Dang M.D. on 08/04/2017 at 21:06 Approved by: Liz Dang M.D. on 08/04/2017 at 21:07
[2017-08-04] MEDS: Polyethylene Glycol (PEG) 17 Gm Powder PO SCH (21:22)
[2017-08-05 04:21] VITALS: BP 134/82; PULSE 87; RESP 16; O2SAT 95
--- NOTE | 2017-08-05 05:30 | NUR ---
Pain/Agitation At start of shift, patient reported feeling a popping sensation followed by increase in abdominal pain and tenderness. Patient threatened to leave AMA if pain management not improved. MD notified. Order placed for abdominal x-ray and increase in Oxycodone from 5mg to 10mg. Patient reports pain control improved. Patient up with standby assist in room, and 2 laps of the unit. Tolerated well. Bed down, rails up, call light in reach. Sitter for observation/safety. Care continues. Addendum: 08/05/17 at 0539 by HEATHER BLUNT RN Patient reports having a BM, in which he felt like he passed some of the objects he had previously swallowed.
--- NOTE | 2017-08-05 08:22 | PCM.PNSURG ---
Subjective Date of Service: Aug 05, 2017 Date of Service: Aug 05, 2017 Visit Information: Subjective: abdominal pain /10 today. foreign objects migrating on abdominal xray. Postop General: No Complaints Objective Vital Sign- Last 8 Hours Date Time Temp Pulse Resp B/P Pulse Ox O2 Delivery O2 Flow Rate FiO2 08/05/17 04:21 36.4 87 16 134/82 95 Room Air Intake and Output- Last 8 Hour 08/05/17 Cumulative From/Thru 07:00 08/02/17 00:20 - 08/05/17 05:37 Intake Total 2854 ml 72234 ml Output Total 2400 ml 8877 ml Balance 454 ml 69329 ml Intake Oral 2854 ml 00153 ml IV Total 5399 ml Output Urine Total 2400 ml 8875 ml Estimated Blood Loss 2 ml # Voids 1 # Bowel Movements 3 6 General: Oriented X3 Neck: Supple Lungs: Clear to Auscultation Heart: Exam Unremarkable Abdomen: Benign, Soft, Appropriately tender, Non-distended, Normoactive bowel tones Extremities: Distal Pulses Palpable Result Diagram: 08/03/17 0544 08/03/17 0544 Assessment & Plan Impression This is a 27-year-old, male history of posttraumatic stress disorder, seizure disorder, presents here for foreign body ingestion. s/p ex lap and lysis adhesions and push enteroscopy with foreign body removal push enteroscopy 08/02- IMPRESSIONS: Removal of foreign body which four screws, 3 push pins, two safety pins open and a wall staple were all removed endoscopically using a agarwal technique placed at the end of the scope and captured via a Cox net or an alligator forceps. RECOMMENDATIONS: Recommendations per general surgery consultation team. We appreciate Dr. Garrett Worthy and general surgery team in taking care of this patient with the GI team. RECOMMENDATIONS: 1. Pain control per hospitalist team 2. Diet and recs per Gen surgery. Problems: Resuscitation Status: CPR: Attempt Resuscitation Garrett Ellsworth MD Aug 05, 2017 08:22
[2017-08-05 08:32] VITALS: BP 148/106; PULSE 77; RESP 16; O2SAT 96
[2017-08-05] MEDS: Polyethylene Glycol (PEG) 17 Gm Powder PO SCH ×2 (08:44→20:30)
[2017-08-05] MEDS: PHENYTOIN 25 MG/ML PO SCH ×3 (08:44→21:33)
[2017-08-05] MEDS: Senna-Docusate 8.6-50 mg Tablet PO SCH (08:45)
[2017-08-05] MEDS: Pantoprazole 40 mg ER24 Tablet PO SCH (08:45)
--- NOTE | 2017-08-05 11:56 | PCM.PNMED ---
Subjective Date of Service Aug 05, 2017 Subjective Patient seen and examined today. He shivering in pain. Vitals noted. Exam Vital Signs Vital Sign - Last Date Time Temp Pulse Resp B/P Pulse Ox O2 Delivery O2 Flow Rate FiO2 08/05/17 08:32 36.4 77 16 148/106 96 Room Air 08/04/17 08:32 0.00 Intake and Output 08/04/17 08/04/17 08/05/17 Cumulative From/Thru 15:00 23:00 07:00 08/02/17 00:20 - 08/05/17 05:37 Intake Total 1772 ml 2854 ml 44183 ml Output Total 1175 ml 2400 ml 8877 ml Balance 597 ml 454 ml 90985 ml Intake Oral 1772 ml 2854 ml 02056 ml IV Total 5399 ml Output Urine Total 1175 ml 2400 ml 8875 ml Estimated Blood Loss 2 ml # Voids 1 # Bowel Movements 1 3 6 Exam NAD, sleepy no JVD, MMM, no LAD RRR, nl s1, s2 no mrg CTAB, no w,c S,ND, diffuse td, post-Laparoscopic scars sterily tapped warm, no edema, pulses 2/2 Lab and Diagnostics Result Diagram: 08/03/1744 08/03/1744 Assessment & Plan Assessment 27-year-old male with history of multiple episode of foreign body ingestion, TBI , depression, PTSD, anxiety, seizure disorder, chronic abdominal pain with cyclic vomiting syndrome presented after he swallowed push pains and screws secondary to his PTSD attack, black out. Given recurrent episode of FB ingestion , reported severe depression, pt likely benefit from comprehensive psychiatric evaluation. Pt remained seizure free since admission. no signs of systemic infection.Intraoperative findings didn't show bowel perforation. -appreciate for psychiatric evaluation, continue home Zyprexa, Klonipin prn, Remeron. -continue home AEDs, dilantin, Keppra, neurocheck q4h per RN. -1:1 observation seems appropriate for now, -post-op pain management per surgical team, Oxycodone 10mg q4h prn, will try to avoid as many opiods as possible as it will slow his BMs, added ketorolac for pain control -diet advanced to general per surgery team dispo: likely depends on surgical course, expect to pass all of FB per surgery. Thank you very much for allowing us to participate in this patient's care. The hospitalist team will continue to follow this patient with you and will be available for any additional questions or concerns. Resuscitation Status: CPR: Attempt Resuscitation Time spent 35 mins Montez Mckee MD Aug 05, 2017 11:56
[2017-08-05] MEDS: Ketorolac 15 mg/mL Inj IVPUSH PRN ×2 (12:11→19:06)
[2017-08-05 12:33] VITALS: BP 123/75; PULSE 75; RESP 16; O2SAT 95
--- NOTE | 2017-08-05 16:54 | DRSVH ---
PROCEDURE: X-RAY ABDOMEN WITH ERECT AND/OR DECUBITUS VIEWS ([id number]) INDICATIONS: tracking foreign bodies TECHNIQUE: 2 views of the abdomen were acquired. COMPARISON: [facility], CR, XR KUB, 08/03/2017, 9:10. [facility], CR, XR ABD W ERECT + OR DECUB 2 VW, 08/04/2017, 4:27. FINDINGS: Surgical changes and devices: None. Bowel: No pneumoperitoneum. The bowel gas pattern is normal. Multiple radiodense foreign bodies ag ain seen which appear to have further advanced with the majority of the foreign body is now projected over the splenic flexure and left colon. Single foreign body projected over the mid right colon. Soft tissues: No masses; visualized solid organ contours appear normal in size. No suspicious abdom inal calcifications. Bones: No suspicious bony abnormalities. IMPRESSION: Further advancement of metallic foreign bodies overlying the colon. Dictated by: Allen PETERSON Interpreted: Liz Dang MD on 08/05/2017 at 8:18 Approved by: Liz Dang M.D. on 08/05/2017 at 16:52
[2017-08-05 18:44] VITALS: BP 137/85; PULSE 84; RESP 16; O2SAT 93
--- NOTE | 2017-08-05 19:36 | NUR ---
Pain improvement Pt. had large BM this morning and again this evening around 1730. Pt. states he felt like he had "passed all the sharps" with the second BM. He states his pain is improved and is anxious to see what x-ray results are tomorrow morning. Pt. has been ambulating in the halls to control abdominal pain. PRN oxycodone and IV ketorolac also administered today with good effect.
[2017-08-05 20:59] VITALS: BP 147/88; PULSE 74; RESP 16; O2SAT 95
--- NOTE | 2017-08-05 22:59 | PROG NOTE ---
[address] [address] PROGRESS NOTE PATIENT: HORACIO ALEMAN : 1990 MR#: [id number] ADMIT: 08/02/2017 JOB ID: [id number] DATE: 08/05/2017 The patient has done well. He remains afebrile, stable vital signs. He is passing gas and stool though complains of abdominal distention. On examination, his abdomen is soft, a bit tympanitic and a bit distended. His incisions are healing well. LABS: There are no labs today. X-rays demonstrate progression of all metallic objects into the large intestine. IMPRESSION AND PLAN: Doing well. We will give him some magnesium citrate from above, try to stimulate his bowel. He is on a general diet but seems to mainly be drinking juices and liquids. I will check his white count tomorrow.
[2017-08-06] MEDS: Ketorolac 15 mg/mL Inj IVPUSH PRN ×2 (01:18→08:18)
[2017-08-06 05:28] VITALS: BP 123/71; PULSE 73; RESP 16; O2SAT 94
[2017-08-06 05:29] LABS: BASOPHILS % (AUTO) 0.3 % (0-3); EOSINOPHILS % (AUTO) 4.3 % (0-5); MONOCYTES % (AUTO) 9.9 % (4-12); Mean Corpuscular Hemoglobin 31.6 pg (27.0-35.0); Mean Corpuscular Volume 90.5 fL (81-100); Platelet Count 208 bil/L (150-400)
--- NOTE | 2017-08-06 06:19 | NUR ---
Pain control Patient reported another BM and is anxious to know if he has passed all foreign objects. Patient up independently in room and ambulates in hallways. Pain managed with PRN oxycodone and ketorlac - pain management effective, though patient did become somewhat agitated when he felt pain meds were late. Clonazepam given - patient's anxiety/agitation reduced. Sitter for observation/safety, as patient has a history of blackouts and seizures. Bed down, rails up, call light in reach. Care continues.
[2017-08-06 07:40] VITALS: BP 148/90; PULSE 79; RESP 20; O2SAT 95
[2017-08-06] MEDS: Polyethylene Glycol (PEG) 17 Gm Powder PO SCH (08:15)
[2017-08-06] MEDS: PHENYTOIN 25 MG/ML PO SCH (08:16)
[2017-08-06] MEDS: Senna-Docusate 8.6-50 mg Tablet PO SCH (08:16)
[2017-08-06] MEDS: Pantoprazole 40 mg ER24 Tablet PO SCH (08:17)
--- NOTE | 2017-08-06 08:18 | PCM.PNSURG ---
Subjective Date of Service: Aug 06, 2017 Date of Service: Aug 06, 2017 Visit Information: Reason for Visit: Chronic abdominal pain & ingestion of foreign bodies without peritonitis or perforation Surgery/Surgery Date Post-Op Day # 4 Status post Laparoscopy with lysis of adhesions, facilitation of the intraoperative esophagogastroduodenoscopy with foreign body removal Date of Admission: Aug 02, 2017 at 20:17 Subjective: Patient underwent discussion with surgical team this a.m. in which he indicated improved related abdominal pain postoperatively adequately controlled with by mouth analgesics, & tolerating a general diet without significant nausea or vomiting. He has had multiple bowel movements and serial x-rays confirming most of the ingested foreign bodies have passed. The patient also specifically verbalized no intentions to cause himself additional harm &/or suicidal ideation. Arrangements have been made for discharge home with family and follow- up with [facility]. Psychiatric consultation during Hospital course concurs with the present disposition plan. Postop General: No Complaints Gastrointestinal: Good Appetite, Tolerating Oral Feedings, No N/V, Passing Flatus, Passing Stool Pain Management: Good Pain Control Postop Activity: Ambulating Independently Objective Vital Sign- Last 8 Hours Date Time Temp Pulse Resp B/P Pulse Ox O2 Delivery O2 Flow Rate FiO2 08/06/17 07:40 36.6 79 20 148/90 95 08/06/17 05:28 36.5 73 16 123/71 94 Room Air Intake and Output- Last 8 Hour 08/06/17 Cumulative From/Thru 07:00 08/02/17 00:20 - 08/06/17 05:34 Intake Total 2628 ml 77238 ml Output Total 1500 ml 43016 ml Balance 1128 ml 04844 ml Intake Oral 2628 ml 77757 ml IV Total 5439 ml Output Urine Total 1500 ml 43328 ml Stool Total 1 ml Estimated Blood Loss 2 ml # Voids 2 # Bowel Movements 6 General: Alert, Oriented X3, Cooperative, No Acute Distress Lungs: Clear to Auscultation Heart: Exam Unremarkable Abdomen: Soft, Appropriately tender, Non-distended, Normoactive bowel tones SURGICAL WOUND : Wound General Appearence: Steri Strips, Intact, Well Approximated, No Erythema, No Discharge, No Inflammatory Changes Extremities: Thigh&Calf Soft/Nontender Neuro: Normal Speech Result Diagram: 08/06/17 0511 08/06/17 0511 Assessment & Plan Impression Primary Diagnoses: 1. Ingested foreign body without peritonitis or perforation 2. Status post Laparoscopy with lysis of adhesions, facilitation of the intraoperative esophagogastroduodenoscopy with foreign body removal: POD # 4 Retained foreign bodies appreciated on KUB x-ray today non-concerning for perforation at this time per Attending General Surgeon Dr. Garrett Worthy M.D. recommending discharge home this a.m. with documented psychiatric authorization for discharge home with family, documented patient verbalization of no further intentions for personal harm &/or suicidal ideation. Finally the patient has appropriate follow-up arranged with [facility] Psych[facility]ry. Other Chronic Conditions: History of traumatic brain injury Depression PTSD Anxiety Seizure/pseudoseizure disorder Chronic abdominal pain with cyclic vomiting syndrome History of multiple episodes of foreign body ingestion Problems: Plan 1. Review specific discharge instructions, when seek immediate medical attention , & document patient verbalization no intention of further harm &/or suicidal ideation. 2. Discharge prescriptions for minimum amount of low-dose opioid analgesics & magnesium citrate. 3. Verify follow-up appointments with [facility] Medical & Psychiatric Providers Today, August 15, & in two weeks with [facility] or sooner as needed or recommended. 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 Pain Management: Oxycodone & Toradol VTE Prophylaxis: Other (ambulatory) Resuscitation Status: CPR: Attempt Resuscitation Jaden Alicea PA-C Aug 06, 2017 08:18
--- NOTE | 2017-08-06 08:47 | PCM.DISURG ---
Surgical Discharge Instruction Date of Service Aug 06, 2017 Dates of Hospitalization Date of Hospital Admission Aug 02, 2017 at 20:17 Providers Admitting Physician: Garrett Worthy MD Primary Care Physician: Other,Physician Attending Physician: Garrett Worthy MD Discharge Diagnosis Discharge Diagnosis Primary Diagnoses: 1. Ingested foreign body without peritonitis or perforation 2. Status post Laparoscopy with lysis of adhesions, facilitation of the intraoperative esophagogastroduodenoscopy with foreign body removal Other Chronic Conditions: History of traumatic brain injury Depression PTSD Anxiety Seizure/pseudoseizure disorder Chronic abdominal pain with cyclic vomiting syndrome History of multiple episodes of foreign body ingestion Post Operative diagnosis Same as above Diet Discharge Diet: No restrictions Activity Discharge Activity-General: Activity as pain allows Dressing and Incisional Care Dressing Care: Allow Steri Stripes to fall off (& remove after 1 week) Hygiene: May shower, DO NOT soak incision under water (for 2 weeks) Follow Up Plan Follow Up Plan Follow-up with [facility] Psych[facility] providers on August 15 or sooner as needed or recommended. Call your provider for: Increasing abdominal pain, Nausea, Vomiting, Increasing wound pain, Warmth to touch, Discharge @ incision, pus discharge Jaden Alicea PA-C Aug 06, 2017 08:47
[2017-08-06] MEDS ORDERED: OXYC-530 PO (08:50)
[2017-08-06] MEDS ORDERED: MAGN296S PO (09:01)
--- NOTE | 2017-08-06 09:27 | PCM.DC.SUR ---
Discharge Summary Date of Service: Aug 06, 2017 Date of Hospital Admission: Aug 02, 2017 at 20:17 Date of Operation(s): August 02, 2017 Date of Discharge: August 06, 2017 Diagnosis at Time of Discharge Primary Diagnoses: 1. Ingested foreign body without peritonitis or perforation 2. Status post Laparoscopy with lysis of adhesions, facilitation of the intraoperative esophagogastroduodenoscopy with foreign body removal Other Chronic Conditions: History of traumatic brain injury Depression PTSD Anxiety Seizure/pseudoseizure disorder Chronic abdominal pain with cyclic vomiting syndrome History of multiple episodes of foreign body ingestion Problems: Operation Laparoscopy with lysis of adhesions, facilitation of the intraoperative esophagogastroduodenoscopy with foreign body removal Brief History and Physical: 27-year-old male with history of multiple episode of foreign body ingestion, TBI , depression, PTSD, anxiety, seizure disorder, chronic abdominal pain with cyclic vomiting syndrome presented after he swallowed push pains and screws secondary to his PTSD attack, black out. 7 hours prior to admission, patient stated that as soon as he realized that he swallowed this foreign bodies, immediately called EMS. On initial ED evaluation patient had severe abdominal pain, x-ray confirmed numerous metallic foreign bodies within the small bowel without bowel perforation. General Surgeon Dr. Garrett Worthy M.D. determined that laparoscopic surgery with endoscopic removal of foreign bodies was indicated. Surgical service and GI service. Medicine & Psychiatry will be consulted to assess patient's medical & psychiatric problems. Historically the patient first presented to [facility], according to records, pt had similar episode of FB ingestion in Jun and Jan of this year , which was believed to be from depression, PTSD. also noted that pt had numerous ED visit in [facility] 15times this year and also 3times to [facility]. The patient admits to having been severely depressed for a while although he sees his psychiatrist at [facility] weekly. There was no medication changes, he has his pillbox and arranged his medications, pretty compliant to hold his medications including Zyprexa, Klonopin. The patient denied having any suicidal ideation during the episodes and currently or homicidal ideation with intentions to further harm himself or others. Hospital Course: The patient was admitted with a history, presentation, & workup consistent with above listed diagnosis & underwent the above-mentioned surgical procedure without complication. See operative report for details of the procedure. After surgery the patient convalesced appropriately. The patient's postsurgical recovery was uneventful. The patient underwent full psychiatric consultation. Bowel function returned during the patient's hospital course during which the patient indicated passing foreign bodies. Postoperative KUB x-rays indicated most of the foreign bodies had already passed. The patient was stable for discharge home with his family on postoperative day #[address] Worthy & Psychiatry. At the time of discharge the patient was afebrile, voiding without difficulty, having bowel movements, tolerating a general diet without nausea or vomiting, his pain was controlled with minimal oral analgesics, he was ambulating without assistance, the patient's wounds were clean, dry, & intact without signs of infection, inflammation, &/or hematoma. We discussed & the patient verbalized understanding all of the postoperative care & medication instructions, follow-up, & when to seek immediate medical attention. All questions were answered. The patient was given written instructions & postoperative instructions. The patient also verbalized no intention to cause any further physical harm &/or present suicidal ideation. Disposition: Home with family on postoperative day #[address] condition per Dr. Worthy & Psychiatry with patient verbalized understanding of postoperative instructions, when to seek immediate medical attention, appropriate Medical & Psychiatric follow-up, with documented patient denial of further intention to cause self- harm &/or possession of suicidal ideation. Follow-up Plan: 1. Follow-up with Medical & Psychiatry Providers at [facility], [facility], & [facility], August 15, 2017, & in 2 weeks with KUB 2 View x-rays; or sooner as needed, scheduled, or directed. 2. Seek immediate medical attention for severe uncontrollable pain, nausea, vomiting, fever, chills, signs of wound infection, intention to cause self-harm , &/or suicidal ideation. Clonazepam (Clonazepam) 1 Mg Tablet 1 MG PO TID PRN PRN For Anxiety (Reported) Divalproex DR (Depakote DR) 500 Mg Tablet 500 MG PO BID (Reported) Swallowed whole without chewing to avoid local irritation of the mouth and throat. Levetiracetam (Keppra) 750 Mg Tablet 750 MG PO BID (Reported) Magnesium Citrate (Magnesium Citrate) 296 Ml Solution 296 ML PO DAILY PRN PRN For Bowel Movement Olanzapine (Olanzapine) 10 Mg Tablet 10 MG PO TID (Reported) Omeprazole (Omeprazole) 20 Mg Capsule.dr 20 MG PO BID (Reported) Oxycodone (Roxicodone) 5 Mg Tablet 5 MG PO Q12H PRN PRN For Pain (Reported) Phenytoin Sodium ER (Dilantin) 100 Mg Capsule 200 MG PO BID (Reported) oxyCODONE (oxyCODONE) 5 Mg Tablet 5 MG PO BID PRN PRN For Severe Pain Discharge Medications: See Above Jaden Alicea PA-C Aug 06, 2017 09:27 Phenytoin Sodium ER (Dilantin) 100 Mg Capsule 200 MG PO BID (Reported) oxyCODONE (oxyCODONE) 5 Mg Tablet 5 MG PO BID PRN PRN For Severe Pain Discharge Medications: See Above Jaden Alicea PA-C Aug 06, 2017 09:27
--- NOTE | 2017-08-06 11:30 | NUR ---
Discharge note- [id number] anxious for discharge this am, stating he can get a ride from his parents . Complained of some discomfort in abdomen and requested pain med. Patient stated that he had a bowel movement earlier. Tolerating diet and fluids. Discharged to home with father and personal belongings.
--- NOTE | 2017-08-06 13:33 | NUR ---
Social Work- Discharge Data: Pt discharged today. Pt maintained denial of suicidality during this admission. Psychiatry consulted, recommended continued follow up with [facility] and [facility] services. Initiated medication changes. Pt's next [facility] Appointment is today and pt is planning on attending. Pt discharged home with family to transport via POV. Assessment: Pt who has appropriate MH follow up and is not currently suicidal. Plan: Pt to discharge home with aunt to transport, follow up at [facility]. Joyce Otto MSW
--- NOTE | 2017-08-06 14:47 | DRSVH ---
PROCEDURE: X-RAY ABDOMEN, ONE VIEW ([id number]) INDICATIONS: foreign body tracking TECHNIQUE: One view of the abdomen acquired. COMPARISON: [facility], CR, XR ABD W ERECT + OR DECUB 2 VW, 08/05/2017, 8:07. [facility], CR, XR ABD AP 1VW, 08/04/2017, 20:50. FINDINGS: Surgical changes and devices: None. Bowel: No pneumoperitoneum. The bowel gas pattern is normal. Multiple radiodense foreign bodies ag ain seen which appear to have further advanced with the majority of the foreign bodies now projected over the left colon, sigmoid and rectum. Soft tissues: No masses; visualized solid organ contours appear normal in size. No suspicious abdom inal calcifications. Bones: No suspicious bony abnormalities. Bibasilar airspace opacities present. IMPRESSION: Further advancement of metallic foreign bodies as above. Continued followup recommended. Bibasilar atelectasis versus aspiration or pneumonia. Correlate clinically. Dictated by: Allen MEDRANO Interpreted: Jaden Lim MD on 08/06/2017 at 8:25 Approved by: Jaden Lim M.D. on 08/06/2017 at 14:40
--- NOTE | 2017-08-07 14:29 | PATH ---
SURGICAL PATHOLOGY Attending Physician:Garrett Worthy MD CASE STATUS: Signed Out PATIENT NAME: HORACIO ALEMAN PID: [id number] : 1990 DATE COLLECTED:08/02/2017 00:00 SPECIMEN: Foreign Body CLINICAL HISTORY: PERITONITIS 1). FOREIGN BODY FINAL DIAGNOSIS: Foreign Body, Not Otherwise Specified: Specimen as described grossly. ICD10: T18.9XXA GROSS DESCRIPTION: The specimen is received in unfixed, labeled with the patient's name, sublabeled as foreign body, and consists of 4 screws, 3 picture hanging nails, 1 safety pin, 1 folded T-pin, and a folded over copper colored piece of metal. The specimen is not suitable for histological analysis; therefore, no sections are submitted. 08/06/17 ICD-9 CODES: CPT CODES: 1: 78678 Electronically Signed Out Naty Payne MD [facility] Pathology [facility] [address], [place] [address] Technical component performed at [facility], [address] [place] [address] Ave[address], [place], [address]
== END 2017-08-06 09:05 | disposition home or self-care (01) | DRG 357 ==
LOC: SED 18:16 → EDBD 18:16 → OBSVTOIN 20:17 → OSC 20:17
PROVIDERS: ADMIT Surgery; ATTEND Surgery
PROC: 0WJP4ZZ Inspection of Gastrointestinal Tract, Percutaneous Endoscopic Approach (ICD-10-PCS; 2017-08-02)
PROC: 0DC98ZZ Extirpation of Matter from Duodenum, Via Natural or Artificial Opening Endoscopic (ICD-10-PCS; principal; 2017-08-02 20:30)
DX: T18.3XXA Foreign body in small intestine, initial encounter (principal); F33.9 Major depressive disorder, recurrent, unspecified; F17.200 Nicotine dependence, unspecified, uncomplicated; Z87.820 Personal history of traumatic brain injury; G40.909 Epilepsy, unspecified, not intractable, without status epilepticus; X58.XXXA Exposure to other specified factors, initial encounter; F43.12 Post-traumatic stress disorder, chronic; Y36.90XA War operations, unspecified, initial encounter; F41.1 Generalized anxiety disorder; F48.1 Depersonalization-derealization syndrome; K31.89 Other diseases of stomach and duodenum; R11.10 Vomiting, unspecified

== ENCOUNTER 2017-08-08 03:29 | Inpatient (IN) | payer OTHER, MEDICAID ==
[~2017-08-08] VITALS: Ht 180.3 cm; Wt 107.3 kg
[2017-08-08] VITALS (10 sets, daily range): BP systolic 109–150; BP diastolic 62–87; PULSE 58–85; RESP 14–18; O2SAT 92–96
[~2017-08-08 03:29] MED LIST changes: +DEP500A PO; +Glycopyrrolate 0.2 MG/ML 1mL Inj ONE; +KLO1T PO; +LEVE750T16 PO; -Lactated Ringer's 1,000 ML IV ONE; +MAGN296S PO; +Neostigmine 1 mg/mL 10 mL Inj ONE; +OLAN10TA19 PO; +OMEP20CA11 PO; +OXYC-474 PO; +OXYC-530 PO; +PHN100C PO; +Propofol 10,000 mCg/mL 20 mL Inj ONE; +Rocuronium 10 mg/mL 5 mL Inj ONE; +Succinylcholine Chloride 20 mg/mL 5 mL Inj ONE; +fentaNYL-PF 50 mCg/mL 2 mL Inj ONE
[2017-08-08] MEDS ORDERED: Polyethylene Glycol (PEG) 17 Gm Powder PO PRN (04:15)
[2017-08-08] MEDS ORDERED: Alum-Mag Hydrox-Simeth 30 mL Suspension PO PRN (04:15)
[2017-08-08] MEDS ORDERED: OLAN10TA19 PO (05:08)
--- NOTE | 2017-08-08 05:24 | NUR ---
Admit Pt arrived to unit in room 1030 at 0310 via a stretcher from [facility] ED with EMS. Alert, oriented, and able to make needs known. c/o 10 out 10 abdominal pain and states "if my pain is not control I'm going to work out of here." MS 1mg IV push once admin with no relief. Ativan 0.5ml admin for anxiety before CT scan with some relief. half and hour later MS 2mg admin with some relief reported. Pt is calm and cooperative with care. one person SBA for safety. Will continue to monitor.
--- NOTE | 2017-08-08 05:52 | PCM.HPMED ---
Subjective Date of Service Aug 08, 2017 Primary Provider: Admitting Physician: Naya Campa DO Primary Care Physician: Other,Physician Attending Physician: Dane Chicas MD Chief Complaint: ABD Pain, Intentional Ingestion History of Present Illness: Patient is a 27 y/o male with past medical history of PTSD with prior FB ingestions who presents after ingesting two razor blades and one needed at approximately 20:00 yesterday evening. Patient states he was triggered by stressful news about [employer] benefits and became so worked up that he blacked out. He does not directly remember ingesting the objects, but family was with him during the episode and they witness this event. Patient had a prior episode on 08/02, when he ingested metallic foreign bodies and was seen by surgery where they removed the objects with lapraroscopy. Patient did not experience perforation from this previous episode. Patient has been set up with psychiatric appointments scheduled on August 15. Patient reports 10/10 ABD pain that is increased after transport from [facility]. He denies any vomiting, diarrhea, or bloody emesis/stools. He denies CP, SOB, or headache. ABD pain is diffuse and sharp. ABD XR done at [facility] shows two razors within the GI tract, and one needle without evidence of perforation. Review of Systems: ROS reviewed and otherwise negative unless noted above. Allergies Coded Allergies: acetaminophen (Verified Allergy, Severe, swelling of the throat, 08/02/17) Home Medications Zyprexa Depakote Phenytoin Oxycodone PMH PTSD Multiple Previous Suicide attempts with ingestion of metallic objects. Surgical History Appendectomy as child Right scalp shrapnel excision involving cranium Right abdominal shrapnel excision Family History No family history of CAD, HTN, or Diabetes. Social History Hx Alcohol Use: No Hx Substance Use: No Hx Tobacco Use: Yes (Occasional cigarette use) Smoking Status: Current Every Day Smoker Living Arrangement: with Family Exam Vital Signs Vital Sign - Last Date Time Temp Pulse Resp B/P Pulse Ox O2 Delivery O2 Flow Rate FiO2 08/08/17 03:46 36.6 85 16 150/80 96 Room Air Intake and Output 08/07/17 08/07/17 08/08/17 Cumulative From/Thru 15:00 23:00 07:00 08/08/17 03:46 - 08/08/17 05:45 Intake Total 0 ml 0 ml Output Total 0 ml 0 ml Balance 0 ml 0 ml Intake Oral 0 ml 0 ml Output Urine Total 0 ml 0 ml Exam Constitutional: Awake, alert, and oriented x3, no acute distress. Head: normocephalic and atraumatic Eyes: pupils equal round and reactive to light. EOMI Mouth: no obvious trauma or bleeding, mucous membranes moist. Heart: regular rate and rhythm. No murmurs, rubs, or gallops. no peripheral edema. Lungs: clear to auscultation bilaterally, no wheeze, rales, or rhonchi ABD: Voluntary guarding; moderate tenderness diffusely, tense, hypoactive bowel sounds throughout. Recent laparotomy surgical sites noted with mild blood oozing from site. Musculoskeletal: moves all four extremities. Skin: warm, dry, no rash Neuro: CN II-XII intact. no focal deficits. Psych: agitated. anxious. Denies Homicidal ideations. Does not recall event, denies intent for further self harm. Lab and Diagnostics Labs Labs reviewed from [facility]. No acute abnormalities. Labs ordered here and pending X-Rays, CTs and MRIs CT with contrast, no evidence of perforation. Results faxed to floor and placed in patient's physical chart. Assessment & Plan Patient is a 27 y/o male with past medical history of PTSD with prior FB ingestions who presents after ingesting two razor blades and one needed at approximately 20:00 yesterday evening. - Acute intentional ingestion of metallic foreign bodies, POA, Active, Stable - Patient with PTSD and prior ingestion (as recently as 08/02/17) ingested two razor blades and one needle - CT w/ contrast shows no evidence of perforation - GI consulted, Dr. Lopez will see patient in morning for EGD and FB removal at 0700. - Surgery consulted and agrees with plan - Pain control with Morphine PRN -AM CBC, CMP -History of PTSD with previous SI attempts, POA, Active, Stable -Continue home dose of antipsychiatric medications Patient is FULL CODE Due to the complexity of the case and continued need for care, patient is admitted under the inpatient status with an expected length of stay greater than 2 midnights. Pain Evaluation: Adequate Pain Control GI Prophylaxis: H2 tiffanie VTE Prophylaxis Indicated: Contraindicated VTE Mechanical Devices: Intermittant Pneumatic CD Resuscitation Status: CPR: Attempt Resuscitation Attending Statement The patient was seen and examined together with house staff on 08/08/2017 and I agree with the history, exam and plan as outlined in the note above. Talib Shaw DO Aug 08, 2017 05:52 Naya Campa DO Aug 08, 2017 06:43
--- NOTE | 2017-08-08 06:49 | PCM.HPANE ---
Patient Data Surgeon Admitting Provider:Naya Campa DO Attending Provider:Dane Chicas MD Primary Care Physician:Other,Physician Other Provider: Reason for Visit Ingestion Foreign Object Ht/WT & BMI Height (Feet): 5 Height (Inches): 11.00 Weight (Kilograms): 107.300 Body Mass Index 33.12 Allergies Coded Allergies: acetaminophen (Verified Allergy, Severe, swelling of the throat, 08/02/17) Past Anesthesia History Anesthesia History: Denies:: Abnormal Airway, Difficult Intubation Diabetes History Hx Diabetes?: No Medications Active Scripts oxyCODONE 5 Mg Tablet5 Mg PO BID PRN For Severe Pain #10 TABLET Ref 0 Prov:Jaden Alicea PA-C 08/06/17 Reported Medications Olanzapine 10 Mg [id number] Mg PO BID Ref 0 08/08/17 Clonazepam 1 Mg Tablet1 Mg PO TID PRN For Anxiety Ref 0 08/03/17 Oxycodone (Roxicodone)5 Mg Tablet5 Mg PO Q12H PRN For Pain Ref 0 08/03/17 Levetiracetam (Keppra)750 Mg Jhaiqo612 Mg PO BID 08/03/[address] (Depakote DR)500 Mg Opcnlz099 Mg PO BID Ref 0 Swallowed whole without chewing to avoid local irritation of the mouth and throat. 08/03/17 Phenytoin Sodium ER (Dilantin)100 Mg Awinyqk432 Mg PO BID 08/03/17 Discontinued Reported Medications Omeprazole 20 Mg Capsule.dr20 Mg PO BID Ref 0 08/03/17 Olanzapine 10 Mg Ltbvzo63 Mg PO TID Ref 0 08/03/17 Discontinued Scripts Magnesium Citrate 296 Ml Sdbuaphv803 Ml PO DAILY PRN For Bowel Movement #1 BOTTLE Prov:Jaden Alicea PA-C 08/06/17 History History of ENT Problems?: No HEENT History: Denies:: Abnormal Airway Difficult Intubation Denture Type: None Teeth Condition: Within Normal Limits Hx of Heart Problems?: No Cardiovascular History: Denies:: Cardiac Surgery Congestive Heart Failure Hypertension Hx of Respiratory Problem?: No Respiratory History: Denies:: Asthma COPD Tuberculosis Hx Neurologic Problems?: Yes Neurological History: Positive for:: Seizures (on depakote, keppra, phenytoin) Hx of GI Problems?: Yes Hx of Problems?: No HX of Peritoneal Dialysis: No Male Hx: Denies:: Prostate Problems Hx Musculoskeletal Problems?: No Hx of Psycho/Social Problems?: Yes (PTSD with blackouts ) Psycho Social History: Positive for:: Anxiety Hx Depression Other Psych Pertinent History: not intentionally sucidal, only happens with PTSD attacks per pt Hx Surgeries?: Yes (Appy, multiple abdominal surgeries) Hx Any Other Health Problems?: Yes Other History: Positive for:: Hospitalization History Blood Transfusions: Positive for:: Accept Blood Products? Blood Transfusions Hx Diabetes: No Hx Alcohol Use: NoHx Substance Use: No Smoking Status: Current Every Day Smoker Have You Smoked inLast 12 mo: Yes Stop/Bang Treated for Sleep Apnea?: No S-Snoring: Do You Snore Loudly: No O-Obsered: Observed not breath: No P-Blood Pressure: treated: No B- Body Mass Index > 35 kg/m2: Yes A- Age over 50: No N- Neck Large Circumference: No G- Gender Male: No BESSIE Risk Assessment: Low Risk, <3 Yes Risk Assessment Category Category 1A: Patient has history of documented sleep apnea, and HAS NOT received any narcotic, sedative or anesthesia administration during this stay. Category 1B: Patient has history of documented sleep apnea, and HAS received any narcotic , sedative or anesthesia administration during this stay Category 2: Patient has SUSPECTED Obstructive Sleep Apnea, and HAS received any narcotic , sedative or anesthesia administration during this stay. Category 3: Patient has SUSPECTED Obstructive Sleep Apnea and HAS NOT received narcotic, sedative or anesthesia administration during this stay. Category 4: Outpatient in Procedural Areas with known sleep apnea or who screen positive for High Risk via the STOP/BANG questionnaire. Exam Exam Vital Signs Vital Signs Date Time Temp Pulse Resp B/P Pulse Ox O2 Delivery O2 Flow Rate FiO2 08/08/17 03:46 36.6 85 16 150/80 96 Room Air General Appearance: Alert, Oriented X3, Cooperative, No Acute Distress HEENT/AIRWAY: MP 2 Lungs: Normal Air Movement Heart: Exam Unremarkable Meds/Labs/Diagnostics Admission Meds Current Medications Morphine Sulfate (Morphine 2 mg/ mL Syringe) 1 mg ONCE ONCE IVPUSH Last administered on 08/08/17 04:13; Start 08/08/17 at 04:00; Stop 08/08/17 at 04:08 ; Status DC Lorazepam (Ativan Inj) 1 mg ONCE ONCE IVPUSH Last administered on 9/28/17at 04 :51; Start 08/08/17 at 04:35; Stop 08/08/17 at 04:40; Status DC Plan Impression Patient chart reviewed, patient interviewed and anesthestic plan with risks, benefits, and alternatives discussed, and informed consent obtained. NPO per Anesth. Guidelines: Yes ASA Physical Status: ASA2 Mod Systemic Disease Anesthetic Plan: GA Bene/Risks/Altern/Consents: Yes HP Complete Prior to Induction: Yes Jaden Mazariegos MD Aug 08, 2017 06:49
[2017-08-08] MEDS ORDERED: Dexamethasone 4 mg/mL Inj IVPUSH PRN (07:35)
[2017-08-08] MEDS ORDERED: HYDROmorphone 1 mg/mL Inj IVPUSH PRN (07:35)
[2017-08-08] MEDS ORDERED: Labetalol 5 mg/mL 20 mL Inj IV PRN (07:35)
[2017-08-08] MEDS ORDERED: EPHEDrine Sulfate 50 mg/mL Inj IVPUSH PRN (07:35)
[2017-08-08] MEDS ORDERED: Atropine 0.4 mg/mL Inj IVPUSH PRN (07:35)
[2017-08-08] MEDS: Lactated Ringer's 1,000 ML IV SCH ×2 (07:35→08:06)
[2017-08-08] MEDS ORDERED: hydrALAZINE 20 mg/mL Inj IVPUSH PRN (07:35)
[2017-08-08] MEDS ORDERED: Lactated Ringer's 500 ML IV PRN (07:35)
[2017-08-08] MEDS ORDERED: Phenylephrine 10,000 mCg/mL Inj IVPUSH PRN (07:35)
[2017-08-08] MEDS ORDERED: fentaNYL-PF 50 mCg/mL 2 mL Inj IVPUSH PRN (07:35)
[2017-08-08] MEDS ORDERED: Ondansetron 2 mg/mL 2 mL Inj IVPUSH PRN (07:35)
--- NOTE | 2017-08-08 07:36 | DRSVH ---
PROCEDURE: CT ABDOMEN AND PELVIS WITH CONTRAST ([id number]) INDICATIONS: ingestion of blades TECHNIQUE: After the administration of intravenous contrast, 5 mm thick sections acquired from the diaphragm to the symphysis. 5 mm coronal and sagittal reformats were acquired. For radiation dose reduction, the following was used: automated exposure control, adjustment of mA and/or kV according to patient siz e. COMPARISON: [facility], CR, XR ABD AP 1VW, 08/06/2017, 7:29. [facility], CR, XR ABD AP 1VW, 08/04/2017, 20:50. [facility], CR, XR KUB, 08/02/2017, 23:50. [facility], CT, CT ABD PELVIS W CON, 08/02/2017, 19:06. FINDINGS: Image quality: Excellent. ABDOMEN: Lung bases: There are bibasilar atelectasis. Heart size is normal. Solid organs: Liver and spleen are normal in size and enhancement. Gallbladder is normal. Biliary system is non dilated. Pancreas enhances normally. No adrenal nodules. Kidneys demonstrate normal size and enhancement, without hydronephrosis. Peritoneum and bowel: There are 2 metallic foreign bodies within the stomach. Multiple metallic fore ign bodies seen on the last CT on 08/02/2017 are no longer visualized. Bowel loops demonstrate caliber . There is mild mesenteric stranding and mild thickening in the loop of jejunum in the left upper qu adrant. A small amount of free fluid is present. No free air. Nodes and vessels: No retroperitoneal or mesenteric adenopathy by size criteria. Aorta and inferior vena cava are normal in size. Miscellaneous: No ventral hernias. PELVIS: Genitourinary: Bladder wall thickness is normal. Miscellaneous: No inguinal hernias or adenopathy. Bones: No suspicious bony lesions. No vertebral body compression fractures. IMPRESSION: 1. There are 2 metallic foreign bodies are present in the gastric lumen consistent with ingested blad es. No free air is identified. 2. There is mild mesenteric stranding and focal thickening in the short segment of jejunum. There is a small amount of free fluid in the peritoneal cavity. The CT findings suggest a inflammatory or infe ctious process. Recommend clinical correlation. 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 Dictated by: Julio Morrison M.D. on 08/08/2017 at 7:33 Transcribed by: HAMILTON on 08/08/2017 at 7:35 Approved by: Julio Morrison M.D. on 08/08/2017 at 14:49
--- NOTE | 2017-08-08 08:18 | NUR ---
[facility] and [facility]. 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
--- NOTE | 2017-08-08 08:54 | PCM.ANEP1 ---
Post Anesthesia PACU Phase 1 Assessment Vital Signs Vital Signs Date Time Temp Pulse Resp B/P Pulse Ox O2 Delivery O2 Flow Rate FiO2 08/08/17 08:50 59 14 122/69 96 Nasal Cannula 2 08/08/17 08:45 62 15 126/76 92 Room Air 08/08/17 08:40 65 16 120/75 94 Room Air 08/08/17 08:35 68 17 128/84 94 Room Air 08/08/17 08:30 36.4 63 18 132/87 95 Room Air 08/08/17 03:46 36.6 85 16 150/80 96 Room Air Anesthetic Administered: GA Level of Alertness: Awake, talking ARROYO's with Equal Strength: Yes Pain: No Nausea or Vomiting: No CV Function & Hydration Stable: Yes Airway Device: Oxygen Delivery: Room Air Lungs: Normal Air Movement PACU Phase 2 Assessment Complications: No Follow up Care: No Patient Instructions Provided: N/A Teto Arana MD Aug 08, 2017 08:54
[2017-08-08] MEDS: Famotidine Inj 20 MG in IV Premix 1 EACH IV SCH ×2 (09:50→21:47)
[2017-08-08] MEDS: Phenytoin 100 mg ER Capsule PO SCH ×2 (09:50→21:48)
[2017-08-08 09:55] LABS: BASOPHILS % (AUTO) 0.4 % (0-3); EOSINOPHILS % (AUTO) 4.7 % (0-5); MONOCYTES % (AUTO) 8.8 % (4-12); Mean Corpuscular Hemoglobin 31.3 pg (27.0-35.0); Mean Corpuscular Volume 91.6 fL (81-100); NEUTROPHILS % (AUTO) 56.9 % (40-74); Platelet Count 226 bil/L (150-400)
--- NOTE | 2017-08-08 10:25 | ENDO ---
[address] [address] ENDOSCOPY PROCEDURE PATIENT: HORACIO ALEMAN : 1990 MR#: [id number] ADMIT: 08/08/2017 JOB ID: [id number] DATE: 08/08/2017 PROCEDURE: Esophagogastroduodenoscopy with foreign body removal. HISTORY OF PRESENT ILLNESS: This is a 27-year-old male with severe mental illness. Recently he experienced major intervention for swallowing numerous sharp objects. Dr. Ellsworth and Dr. Worthy worked on him about six nights ago. He was discharged from the hospital a couple of days ago and turned up at [facility] reporting that he swallowed two more disposable razor blades. While he was in the emergency department he managed to then swallow a needle. The patient was having some abdominal discomfort. The imaging at [facility] showed the objects to be sitting just below the diaphragm. The patient was transferred over to [facility]. He had a CT scan done over here this morning and that confirmed the presence of foreign bodies in the stomach. I counted three on the imaging consistent with his history. EQUIPMENT: [id number] SEDATION: General anesthesia with endotracheal intubation as provided by Dr. Jaden Mazariegos and Paul Arana. COMPLICATIONS: None identified. PROCEDURE INFO: After the risks and benefits were explained, written and verbal informed consent was obtained. The patient was sedated, intubated, and then placed in the left lateral decubitus position. The endoscope was introduced into the mouth and advanced through the esophagus down into the stomach. There was a moderate amount of retained food debris and initially it was difficult to see any evidence of residual metallic foreign bodies. However, with a little suction much of the debris was actually able to come up through the accessory channel of the scope and we identified the first of the three items. This was a disposable razor blade still in its plastic housing. I removed the endoscope. We connected the rubber agarwal with it well lubricated advanced it back down into the stomach. The first of the disposal razor blade cartridges was then successfully removed per os. We then next retrieved the needle. This was much more challenging in that the needle was bent, and not in its sheath. In that I did not see any trauma in his esophagus all the way down I would assume that he swallowed this hub first. At any rate, with some difficulty, we were able to get the needle positioned with the tip of the needle right up close to the camera in the endoscope and the agarwal then flopped down over top as was design and we were able to remove this one per os. We then proceeded to pass the endoscope again for the third and final object which was successfully removed. Each time we used the alligator tooth grasping forceps. I did not see any further metallic foreign bodies in the stomach after this. We passed the endoscope down one final time to ensure we did not see any trauma from passage of these items back up through the esophagus, and none was seen. I advanced to the second portion of the duodenum and did not identify any other items of significance. We did perform some retroflexed views in the stomach during the case. Ultimately the stomach was decompressed. The scope removed from the patient who tolerated the procedure well. FINDINGS: As above. The three foreign bodies (two disposable razor blade cartridges and a needle) were successfully removed from the stomach. ENDOSCOPIC DIAGNOSES: 1. Small sliding hiatal hernia. 2. No evidence of any significant esophageal trauma. 3. Successful endoscopic removal of foreign body x3. RECOMMENDATIONS: 1. Psychiatric consultation and treatment. 2. Full-time sitter while in the hospital. 3. Diet can be advanced as tolerated. 4. GI will sign off. Please call p.r.n.
--- NOTE | 2017-08-08 14:40 | PCM.PNMED ---
Subjective Date of Service Aug 08, 2017 Subjective Patient is in the bed, sleepy after procedure. Sitter at the bedside Exam Vital Signs Vital Sign - Last Date Time Temp Pulse Resp B/P Pulse Ox O2 Delivery O2 Flow Rate FiO2 08/08/17 09:34 36.8 58 16 109/68 94 Room Air 08/08/17 09:05 2 Intake and Output 08/07/17 08/07/17 08/08/17 Cumulative From/Thru 15:00 23:00 07:00 08/08/17 03:46 - 08/08/17 05:45 Intake Total 0 ml 0 ml Output Total 0 ml 0 ml Balance 0 ml 0 ml Intake Oral 0 ml 0 ml Output Urine Total 0 ml 0 ml Exam Patient was seen and examined. IVs and Medications Medications Reviewed: Medications were reviewed in detail Lab and Diagnostics Result Diagram: 08/08/1795108/08/17951 X-Rays, CTs and MRIs CT with contrast, no evidence of perforation. Results faxed to floor and placed in patient's physical chart. Assessment & Plan Patient is a 27 y/o male with past medical history of PTSD with prior FB ingestions who presents after ingesting two razor blades and one needed at approximately 20:00 yesterday evening. Acute intentional ingestion of metallic foreign bodies, POA, Active, Stable - Patient with PTSD and prior ingestion (as recently as 08/02/17) ingested two razor blades and one needle - CT w/ contrast shows no evidence of perforation - GI consulted, patient had EGD today with removal of the foreign bodies. Plan - Pain control with Morphine PRN - Psychiatry consult , servise was notified - sitter History of PTSD with previous SI attempts, POA, Active, Stable -Continue home dose of antipsychiatric medications DVT PROPHYLAXIS: SCD Code status: full code Disposition: discharge after patient improves. Plan of care discussed with treatment team; Labs, radiology tests, reviewed. Plan of care, medication side effects, home medication, diagnostic procedures and available alternatives were discussed and reviewed with patient. All questions answered. Patient verbalized understanding, approved and agreed to plan of care. GI Prophylaxis: H2 tiffanie VTE Mechanical Devices: Intermittant Pneumatic CD Resuscitation Status: CPR: Attempt Resuscitation Dane Chicas MD Aug 08, 2017 14:40
--- NOTE | 2017-08-08 17:28 | NUR ---
Social Work: Initial Assessment D: EMR reviewed. Please see Initial Assessment linked to this note for more information. Pt is a 27 year old male admitted IN for ingestion of foreign object per H&P. Pt's insurance is [facility] Blind/Disabled. PCP is Lynnette Wilkes MD. Pt discussed in multidisciplinary rounds, Psychiatry to see pt. SW met with pt at bedside to conduct initial assessment. Pt was alert and oriented x3. SW explained role and wrote phone number on white board. Psychiatry spoke with pt during SKEIN INSPECTOR assessment, Psych updated SKEIN INSPECTOR after evaluation and recommends placement in [place] given pt's crisis status. Pt is voluntarily agreeable to placement at this time. At this time, no dictation is available from Psychiatry for a bed cert. Psych states they also will see pt again tomorrow. Pt also has no active discharge orders from the medical team at this time. Pt lives at home with his parents in [place]. Pt ambulates independently, dx of PTSD and TBI at baseline. Pt has history at [facility]. Pt uses no DME at baseline, pt does not drive. Pt has no HH or SNF history. Pt has no LTC benefits. Pt has VA benefits, reportedly was 10% service connected last admission but states that his VA benefits are decreasing which is a stressor. Pt has no DPOA on file. Pt's father Lucio [phone] contacted pt on room phone during this assessment and pt requested that SKEIN INSPECTOR speak with his father by phone. Pt's father informed SKEIN INSPECTOR that pt is not able to return home due to safety concerns at this time. Pt's father is willing to bring in pt's wallet, phone, and some personal belongings but is not comfortable having pt return home. Pt's father reports that pt has a history of homelessness, reports that pt was homeless prior to moving in to his parents home in March. Pt's father states that if absolutely necessary he would be willing to transport pt to [facility]. Pt's father feels that [facility] is the best place for pt at this time, hopeful that potentially in the future pt would be able to engage in housing resources through [facility]. Pt confirms that he attended his appointment on 08/06 with Deneen Munguia at [facility] in [place]. Pt also confirms that he is beginning a DBT program through [facility] on August 15. Pt reports that he has a PCP appointment tomorrow. SW discussed access to medications, pt states that he did not obtain his Remeron, did not get it filled. Pt was unclear as to why it was not filled, stated that he may not have had a prescription. Pt confirms that he obtains his Rx through his [facility] HO and has not had difficulty obtaining his medications in the past. A: Pt for whom Psych feels is appropriate for inpt hospitalization at [facility], requesting SKEIN INSPECTOR complete bed cert when medically stable. P: Pt is voluntary for [facility] admission. Psychiatry feels pt is appropriate for inpt psychiatric hospitalization, requesting that [facility] be pursued given pt's history and rapport there. Pt is likely to be medically ready for discharge tomorrow, Psychiatry will see pt again tomorrow and SKEIN INSPECTOR will pursue bed certification at that time. [facility] will continue to follow. HERNÁN Saeed Addendum: 08/08/17 at 1745 by YOANDY MARS Amended: Links added. Addendum: 08/08/17 at 1830 by YOANDY MARS [facility]CO received call from pt's [facility] clinician Deneen Elliot [phone] regarding pt. Deneen will not be available until Saturday as she does not work Saturday. Deneen states that pt is on a less restrictive order after his involuntary hospitalization at [facility]. eDneen is monitoring this LRO. Deneen also confirms that she saw pt on 08/06 and has another session for him planned 08/15. Confirms that pt is beginning a skills group and she does DBT in pt's individual sessions as well. Deneen was also aware that pt's father is not willing to take pt back home. Deneen believes that pt residing with his father is triggering for pt. Pt's father has also called Deneen to inform her that pt could not return home. Deneen states that pt also has a primary care physician through [facility] named Medardo Crocker who will be able to assist pt with housing resources and continued management after discharge. The earliest that Deneen will be available to meet with pt is Saturday for any follow up appointments. Deneen is not available to come to the hospital to meet with patient over the weekend and she does not work Fridays. Deneen informed SKEIN INSPECTOR that [facility] and [facility] have a Triage Center for mental health stabilization located at [address] [place] [address] in [place]. If pt is not able to be placed voluntarily in [facility] or [facility] and also is not able to contract to keep himself safe [facility] Triage Center may be an appropriate option for stabilization. MAYCO will continue to follow. HERNÁN Saeed
--- NOTE | 2017-08-08 18:22 | NUR ---
Shift: Pt admitted for swallowing foreign bodies, off unit to Endo at start of shift, returned from Endo at approx 0930. A/o x3, moves all extremities, responds appropriately. Pt has flat affect, c/o anxiety at times. VSS, not on tele, RA O2 sats 97%, tolerating PO intake, voiding independently. Pt up ad addie in room, no gait instability noted. Sitter at bedside for safety reasons, no attempts to self-harm or swallow inappropriate objects. Psych consult, new orders placed. Care ongoing.
[2017-08-09] VITALS (11 sets, daily range): BP systolic 115–151; BP diastolic 76–97; PULSE 73–96; RESP 16–22; O2SAT 94–99
[2017-08-09] MEDS ORDERED: Propofol 10,000 mCg/mL 20 mL Inj ONE ×2 (01:29)
[2017-08-09] MEDS ORDERED: Succinylcholine Chloride 20 mg/mL 5 mL Inj ONE (01:29)
[2017-08-09] MEDS ORDERED: Glycopyrrolate 0.2 MG/ML 1mL Inj ONE (01:29)
[2017-08-09] MEDS ORDERED: Rocuronium 10 mg/mL 5 mL Inj ONE (01:29)
[2017-08-09] MEDS ORDERED: Neostigmine 1 mg/mL 10 mL Inj ONE (01:29)
[2017-08-09] MEDS ORDERED: Dexamethasone 4 mg/mL Inj ONE ×2 (01:29)
[2017-08-09] MEDS ORDERED: fentaNYL-PF 50 mCg/mL 2 mL Inj ONE (01:29)
[2017-08-09] MEDS ORDERED: Ondansetron 2 mg/mL 2 mL Inj ONE (01:29)
--- NOTE | 2017-08-09 04:29 | NUR ---
General Pt A&OX3. Cooperative with care and able to make needs known. no behavioral or safety issue noted on this shift so far. Denies N/V/D, resp distress and/or SOB. Medicated for abdominal pain wiht MS 1mg IV push x1 with good relief noted. Pt has been sleeping soundly so far on this shift. Woke up once to take scheduled and prn pain med. sitter in room. VSS. Care continues.
[2017-08-09] MEDS: Famotidine Inj 20 MG in IV Premix 1 EACH IV SCH (08:31)
[2017-08-09] MEDS: Phenytoin 100 mg ER Capsule PO SCH ×2 (08:32→20:30)
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
[2017-08-09] MEDS ORDERED: Alum-Mag Hydrox-Simeth 30 mL Suspension PO PRN (13:55)
--- NOTE | 2017-08-09 14:00 | NUR ---
Behavior Around 1300 hrs pt became restless and agitated while talking with his father on the phone. Pt expressed that he wanted to leave AMA. Overheard pt telling his father that he "had to come get him." Then at 1400 pt reported that he had just swallowed some metal. When questioned pt reported that he had a soda can and when he was in the bathroom he torn the can apart and swallow some of it. Pt now has slight amount of blood coming from his left nares and central tongue. Hospitalist notified. CT of abdomen ordered. Will also notify Dr Bean in mental health.
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
--- NOTE | 2017-08-09 15:18 | DRSVH ---
PROCEDURE: CT ABDOMEN WITHOUT CONTRAST ([id number]) INDICATIONS: Patient swallowed foreign object again TECHNIQUE: After the administration of oral contrast, 5 mm thick sections acquired from the diaphragms to the il iac crests. 5 mm coronal and sagittal reformats were then performed. For radiation dose reduction, the following was used: automated exposure control, adjustment of mA and/or kV according to patient size. COMPARISON: [facility], CR, XR KUB, 08/03/2017, 9:10. [facility], CT, CT ABD PELVIS W CON, 08/08/2017, 4:49. FINDINGS: Image quality: Excellent. Lung bases: Bibasilar atelectasis. Lung bases are otherwise clear. Heart size is normal. Solid organs: Liver and spleen are normal in size. Gallbladder is normal. Pancreas is normal in co ntours. No adrenal nodules. Both kidneys are normal in size, without hydronephrosis or nephrolithia sis. Peritoneum and bowel: The 2 metallic foreign objects within the stomach lumen seen on last CT dated 08/07/17 are no longer visualized. There are 3-4 linear less dense from objects within the stomach. Mi ld mesenteric stranding in the left mid abdomen is decreased. Bowel loops demonstrate normal wall thi ckness and caliber. No free fluid or air. Nodes and vessels: No retroperitoneal or mesenteric adenopathy by size criteria. Aorta and inferior vena cava are normal in size. Bones: No suspicious bony lesions. No vertebral body compression fractures. Miscellaneous: No ventral hernias. IMPRESSION: 1. 3-4 linear hyperdense foreign objects within the stomach. No free air to suggest stomach perforati on. 2. Bibasilar atelectasis. Dictated by: Julio Morrison M.D. on 08/09/2017 at 15:04 Approved by: Julio Morrison M.D. on 08/09/2017 at 15:16
--- NOTE | 2017-08-09 15:37 | PCM.PNMED ---
Subjective Date of Service Aug 09, 2017 Subjective Patient informed me he swallowed parts of the aluminium can today in the bathroom. CT was ordered, GI consulted. Exam Vital Signs Vital Sign - Last Date Time Temp Pulse Resp B/P Pulse Ox O2 Delivery O2 Flow Rate FiO2 08/09/17 12:05 36.7 87 16 126/83 95 Room Air 08/08/17 09:05 2 Intake and Output 08/08/17 08/08/17 08/09/17 Cumulative From/Thru 15:00 23:00 07:00 08/08/17 03:46 - 08/09/17 05:35 Intake Total 700 ml 350 ml 300 ml 1350 ml Output Total 800 ml 620 ml 1420 ml Balance 700 ml -450 ml -320 ml -70 ml Intake Oral 300 ml 300 ml 600 ml IV Total 700 ml 50 ml 750 ml Output Urine Total 800 ml 620 ml 1420 ml # Voids 1 1 # Bowel Movements 0 0 Exam GENERAL: Alert, not in distress, HEAD: atraumatic, normocephalic, no bruises. EYES: EOMI, anicteric, able to fully open and close eyelids SKIN: Skin color normal, turgor normal. No visible rashes or lesions. EAR, NOSE, MOUTH, THROAT: Lips, oral mucosa, tongue are moist, pink, no lesions. Ears normal appearance, no lesions. NECK: no jugulovenous distention; supple ROM normal. RESPIRATORY: Lungs clear to auscultation. Good diaphragmatic excursion. CARDIAC: normal S1 and S2; no rubs, murmurs, or gallops; regular rate and rhythm ABDOMEN: Abdomen soft, mildly tender. BS normal. No masses or organomegaly. MUSCULOSKELETAL: ROM full, muscles are not tender EXTREMITIES: no pitting edema in LE, no new deformities or skin discoloration. NEURO: Alert, oriented X 3, Sensation grossly intact, Cranial nerves II-XII intact, Grossly normal motor function. PULSES: 2+ radial, 2+ carotid REVIEW OF SYSTEMS: GENERAL: no malaise, no fevers., SEE HPI HEENT: Negative for frequent or significant headaches All other reviewed and negative other than HPI. IVs and Medications Medications Reviewed: Medications were reviewed in detail Lab and Diagnostics Result Diagram: 08/08/17 0952 08/08/17 0952 X-Rays, CTs and MRIs CT with contrast, no evidence of perforation. Results faxed to floor and placed in patient's physical chart. Assessment & Plan Patient is a 27 y/o male with past medical history of PTSD with prior FB ingestions who presented to the hospital after ingesting two razor blades and one needle. GI was consulted and did EGD when three foreign bodies (two disposable razor blade cartridges and a needle) were successfully removed from the stomach. Today patient swallowed parts of the aluminum can Acute intentional ingestion of metallic foreign bodies, s/p EGD 08/08/17 - Patient with PTSD and prior ingestion (as recently as 08/02/17) ingested two razor blades and one needle - CT w/ contrast shows no evidence of perforation - GI consulted again - Psychiatrist evaluated the patient Plan - GI consult , servise was notified - Psychiatry consult , servise was notified - sitter - CT abdomen - MALOX, pantoprazole, Morphine IV for pain, History of PTSD with previous SI attempts, - psychiatry consulted -Continue home dose of antipsychiatric medications DVT PROPHYLAXIS: SCD Code status: full code Disposition: discharge to psych facility after patient improves Plan of care discussed with treatment team; Labs, radiology tests, reviewed. GI Prophylaxis: H2 tiffanie VTE Mechanical Devices: Intermittant Pneumatic CD Resuscitation Status: CPR: Attempt Resuscitation Dane Chicas MD Aug 09, 2017 15:37
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
--- NOTE | 2017-08-09 16:13 | NUR ---
Social Work: Continued Discharge Planning/Multidisciplinary Rounds D: EMR reviewed. Pt is on day 2 of hospitalization. Pt discussed in multidisciplinary rounds and was medically stable for discharge. Once discharge orders placed, MAYCO discussed bed certification process for voluntary inpt stay at [facility]. Pt willing to go to [facility] voluntarily this morning. After multidisciplinary rounds, pt reported to RN that he had a soda can and when he was in the bathroom he ripped the can apart and swallowed pieces of the can. Pt was seen by Psychiatrist and recommended to continue with discharge plan for pt to go to [facility] voluntarily, once medically stable. Pt was medically stable this morning and after swallowing pieces of can, pt no medically stable for discharge today. MAYCO then received report from film editor supervisor that pt is actively expressing suicidal plans/thoughts. Per film editor supervisor, pt reported that he want's to commit suicide and is planning on sticking fork into electrical outlet at hospital. Pt stated this after Psychiatry Consult and after swallowing pieces of metal. Pt also stating that he will leave AMA unless he gets a different doctor and receives medications for his pain. Pt stated to MAYCO that he was "willing to admit he harmed himself to his RN and if he isn't treated for the pain, he will leave AMA". MAYCO received T/C and voicemail from pt's father stating that pt is not safe to return home and is a danger to himself and others - pt's father states he has tried to commit suicide 5 times at their home and pt needs help for PTSD and TBI. MAYCO contacted Psychiatry regarding new information with pt's intention of harming himself at hospital. MAYCO also noted that pt has a LRO in place and pt is stating he wants to leave AMA. Psychiatry agreeable for SW to dispatch [facility]. MAYCO contacted SW Branch Service Associate regarding [facility]. Pt is not medically stable and is not cleared by Psychiatry but is threatening to leave AMA. SW Branch Service Associate agreeable to dispatch [facility]. MAYCO called Beth at [facility] [phone] and confirmed that [facility] will be dispatched between 1600 - 1800 today. MAYCO notified film editor supervisor and pt's RN that [facility] has been dispatched. A: Pt for whom a [facility] has been dispatched to arrive between 1600 and 1800 today. P: Evolving; SW dispatched [facility] who is confirmed to arrive today between 1600 and 1800 today. SW printed notes for [facility] and left in pt's chart. SW will continue to follow. HERNÁN Harrison
[2017-08-09] MEDS ORDERED: Haloperidol 5 mg/mL Inj IM PRN (16:35)
--- NOTE | 2017-08-09 18:01 | NUR ---
Suicide ideation At approximately 1500 hours, the sitter reported to me that the pt had said that he had plans to kill himself by sticking a metal fork into one of the electrical outlets here at the hospital. This was after the pt had reported swallowing part of an aluminum soda can. Pt has had increased anxiety throughout the afternoon and has been pacing in his room. Pt states he wants to leave and feels no one is doing anything for him. At 1800 hrs pt began spitting up blood and saliva; he was trying to retch but did not vomit. Charge nurse, hospitalist, and sales department manager notified of pt's condition.
[2017-08-09 19:16] LABS: Mean Corpuscular Hemoglobin 31.6 pg (27.0-35.0); Mean Corpuscular Volume 89.5 fL (81-100)
[2017-08-09 19:32] LABS: INR 0.94 ratio
[2017-08-09] MEDS ORDERED: EPHEDrine Sulfate 50 mg/mL Inj IVPUSH PRN (20:55)
[2017-08-09] MEDS ORDERED: Phenylephrine 10,000 mCg/mL Inj IVPUSH PRN (20:55)
[2017-08-09] MEDS ORDERED: Ondansetron 2 mg/mL 2 mL Inj IVPUSH PRN ×2 (20:55→22:40)
[2017-08-09] MEDS ORDERED: MetoCLOpramide 5 mg/mL 2 mL Inj IVPUSH PRN (20:55)
[2017-08-09] MEDS ORDERED: fentaNYL-PF 50 mCg/mL 2 mL Inj IVPUSH PRN ×2 (20:55→22:40)
[2017-08-09] MEDS ORDERED: Lactated Ringer's 500 ML IV PRN ×2 (20:55→22:40)
[2017-08-09] MEDS ORDERED: HYDROmorphone 1 mg/mL Inj IVPUSH PRN ×2 (20:55→22:40)
[2017-08-09] MEDS ORDERED: Labetalol 5 mg/mL 20 mL Inj IV PRN (20:55)
[2017-08-09] MEDS ORDERED: Lactated Ringer's 1,000 ML IV SCH ×2 (20:55→22:40)
[2017-08-09] MEDS ORDERED: Atropine 0.4 mg/mL Inj IVPUSH PRN (20:55)
--- NOTE | 2017-08-09 20:55 | PCM.HPANE ---
Patient Data Surgeon Admitting Provider:Naya Campa DO Attending Provider:Dane Chicas MD Primary Care Physician:Other,Physician Other Provider: Reason for Visit Ingestion Foreign Object INGESTION FOREIGN OBJECT Ht/WT & BMI Height (Feet): 5 Height (Inches): 11.00 Weight (Kilograms): 107.300 Body Mass Index 33.00 Allergies Coded Allergies: acetaminophen (Verified Allergy, Severe, swelling of the throat, 08/02/17) Past Anesthesia History Anesthesia History: Denies:: Abnormal Airway, Anesthesia Reactions, Difficult Intubation, Fam Anesthesia Reaction, Fam Malignant Hypertherm, Malignant Hyperthermia Diabetes History Hx Diabetes?: No Medications Reported Medications Olanzapine 10 Mg Gpabwh68 Mg PO BID Ref 0 08/08/17 Clonazepam 1 Mg Tablet1 Mg PO TID PRN For Anxiety Ref 0 08/03/17 Levetiracetam (Keppra)750 Mg Uyuxoh481 Mg PO BID 08/03/[address] (Depakote DR)500 Mg Hdzpqo692 Mg PO BID Ref 0 Swallowed whole without chewing to avoid local irritation of the mouth and throat. 08/03/17 Phenytoin Sodium ER (Dilantin)100 Mg Psiepnw627 Mg PO BID 08/03/17 Discontinued Reported Medications Oxycodone (Roxicodone)5 Mg Tablet5 Mg PO Q12H PRN For Pain Ref 0 08/03/17 Omeprazole 20 Mg Capsule.dr20 Mg PO BID Ref 0 08/03/17 Olanzapine 10 Mg Ixymip01 Mg PO TID Ref 0 08/03/17 Discontinued Scripts oxyCODONE 5 Mg Tablet5 Mg PO BID PRN For Severe Pain #10 TABLET Ref 0 Prov:Jaden Alicea PA-C 08/06/17 Magnesium Citrate 296 Ml Ciqqywls042 Ml PO DAILY PRN For Bowel Movement #1 BOTTLE Prov:Jaden Alicea PA-C 08/06/17 History History of ENT Problems?: No HEENT History: Denies:: Abnormal Airway Difficult Intubation Denture Type: None Teeth Condition: Within Normal Limits Hx of Heart Problems?: No Cardiovascular History: Denies:: AICD Cardiac Surgery Congestive Heart Failure Hypertension Pacemaker Valvular Heart Disease Hx of Respiratory Problem?: No Respiratory History: Denies:: Asthma COPD Tuberculosis Hx Neurologic Problems?: Yes Neurological History: Positive for:: Seizures (on depakote, keppra, phenytoin) Hx of GI Problems?: Yes Hx of Problems?: No HX of Peritoneal Dialysis: No Male Hx: Denies:: Prostate Problems Hx Musculoskeletal Problems?: No Hx of Psycho/Social Problems?: Yes (PTSD with blackouts ) Psycho Social History: Positive for:: Anxiety (PTSD,SUICIDAL IDEATIONS. SWALLOWS HARMFUL OBJECTS WHEN HE BLACKS OUT.) Hx Depression Other Psych Pertinent History: not intentionally sucidal, only happens with PTSD attacks per pt Hx Surgeries?: Yes (Appy, multiple abdominal surgeries) Hx Any Other Health Problems?: Yes Other History: Positive for:: Hospitalization History Blood Transfusions: Positive for:: Accept Blood Products? Blood Transfusions Hx Diabetes: No Hx Alcohol Use: NoHx Substance Use: No Smoking Status: Current Every Day Smoker Have You Smoked inLast 12 mo: Yes Stop/Bang Treated for Sleep Apnea?: No S-Snoring: Do You Snore Loudly: No O-Obsered: Observed not breath: No P-Blood Pressure: treated: No B- Body Mass Index > 35 kg/m2: Yes A- Age over 50: No N- Neck Large Circumference: No G- Gender Male: No BESSIE Risk Assessment: Low Risk, <3 Yes Risk Assessment Category Category 1A: Patient has history of documented sleep apnea, and HAS NOT received any narcotic, sedative or anesthesia administration during this stay. Category 1B: Patient has history of documented sleep apnea, and HAS received any narcotic , sedative or anesthesia administration during this stay Category 2: Patient has SUSPECTED Obstructive Sleep Apnea, and HAS received any narcotic , sedative or anesthesia administration during this stay. Category 3: Patient has SUSPECTED Obstructive Sleep Apnea and HAS NOT received narcotic, sedative or anesthesia administration during this stay. Category 4: Outpatient in Procedural Areas with known sleep apnea or who screen positive for High Risk via the STOP/BANG questionnaire. Low Risk, <3 Yes Exam Exam Vital Signs Vital Signs Date Time Temp Pulse Resp B/P Pulse Ox O2 Delivery O2 Flow Rate FiO2 08/09/17 20:02 36.7 79 18 131/89 94 Room Air 08/09/17 16:35 36.7 83 18 132/85 94 Room Air General Appearance: Alert, Oriented X3, Cooperative, No Acute Distress HEENT/AIRWAY: MP 2 Lungs: Normal Air Movement Heart: Exam Unremarkable Meds/Labs/Diagnostics Admission Meds Current Medications Mirtazapine (Remeron) 15 mg HS PO Last administered on 08/08/17 21:48; Start 08/08/17 at 21:00 Olanzapine (ZyPREXA Inj) 10 mg ONCE ONCE IM Last administered on 08/09/17 15: 21; Start 08/09/17 at 14:20; Stop 08/09/17 at 14:22; Status DC Morphine Sulfate (Morphine 2 mg/ mL Syringe) 2 mg STK-MED ONCE .ROUTE Last administered on 08/09/17 16:59; Start 08/09/17 at 16:54; Stop 08/09/17 at 16:56 ; Status DC Labs Test 08/08/17 09:52 08/09/17 19:14 Neutrophils (%) (Auto) 56.9% (40-74) Lymphocytes (%) (Auto) 28.2% (14-46) Monocytes (%) (Auto) 8.8% (4-12) Eosinophils (%) (Auto) 4.7% (0-5) Basophils (%) (Auto) 0.4% (0-3) White Blood Count 9.7th/mm3 (3.8-10.1) Red Blood Count 4.74mil/mm3 (4.40-5.80) Hemoglobin 15.0g/dL (13.8-17.2) Hematocrit 42.4% (41.0-50.0) Mean Corpuscular Volume 89.5fL (81-100) Mean Corpuscular Hemoglobin 31.6pg (27.0-35.0) Mean Corpuscular Hemoglobin Concent 35.4% (32.0-37.0) Red Cell Distribution Width 13.1% (12.3-15.4) Platelet Count 266bil/L (150-400) Prothrombin Time 10.0sec (8.1-12.5) Prothromb Time International Ratio 0.94ratio Sodium Level 139mEq/L (134-144) Potassium Level 3.9mEq/L (3.5-5.2) Chloride Level 101mEq/L (97-108) Carbon Dioxide Level 21mmol/L (18-29) Blood Urea Nitrogen 13mg/dL (6-20) Creatinine 0.65mg/dL (0.76-1.27) Estimat Glomerular Filtration Rate 158mL/min (>59) Glucose Level 107mg/dL (60-99) Calcium Level 9.2mg/dL (8.5-10.1) Total Bilirubin 0.2mg/dL (0.0-1.2) Aspartate Amino Transf (AST/SGOT) 40U/L (0-50) Alanine Aminotransferase (ALT/SGPT) 49U/L (0-44) Alkaline Phosphatase 94U/L (25-150) Total Protein 7.7g/dL (6.4-8.4) Albumin 4.4g/dL (3.4-5.0) Hold Reyes Top Tube Received (Received) Plan Impression Patient chart reviewed, patient interviewed and anesthestic plan with risks, benefits, and alternatives discussed, and informed consent obtained. NPO per Anesth. Guidelines: Yes ASA Physical Status: ASA3 Severe Disease (picca, suicidal) Anesthetic Plan: GA Bene/Risks/Altern/Consents: Yes HP Complete Prior to Induction: Yes Denzel Jacobs MD Aug 09, 2017 20:07
[2017-08-09] MEDS ORDERED: fentaNYL 2 mCg/mL-Bupivicaine 0.125% 100 mL Premix EPIDURAL ONE (21:49)
[2017-08-09] MEDS ORDERED: Lactated Ringer's 1,000 ML IV ONE (21:59)
--- NOTE | 2017-08-09 22:37 | PCM.HPANE ---
Patient Data Surgeon Admitting Provider:Naya Campa DO Attending Provider:Dane Chicas MD Primary Care Physician:Other,Physician Other Provider: Reason for Visit Ingestion Foreign Object INGESTION FOREIGN OBJECT Ht/WT & BMI Height (Feet): 5 Height (Inches): 11.00 Weight (Kilograms): 107.300 Body Mass Index 33.00 Allergies Coded Allergies: acetaminophen (Verified Allergy, Severe, swelling of the throat, 08/02/17) Past Anesthesia History Anesthesia History: Denies:: Abnormal Airway, Anesthesia Reactions, Difficult Intubation, Fam Anesthesia Reaction, Fam Malignant Hypertherm, Malignant Hyperthermia Diabetes History Hx Diabetes?: No MRSA MRSA: No Medications Hypertension Medication: No Home Meds Incl Beta Mickey: No Reported Medications Olanzapine 10 Mg Igpzde56 Mg PO BID Ref 0 08/08/17 Clonazepam 1 Mg Tablet1 Mg PO TID PRN For Anxiety Ref 0 08/03/17 Levetiracetam (Keppra)750 Mg Fpebrh500 Mg PO BID 08/03/[address] (Depakote DR)500 Mg Zlkmxt411 Mg PO BID Ref 0 Swallowed whole without chewing to avoid local irritation of the mouth and throat. 08/03/17 Phenytoin Sodium ER (Dilantin)100 Mg Jmfrzdo694 Mg PO BID 08/03/17 Discontinued Reported Medications Oxycodone (Roxicodone)5 Mg Tablet5 Mg PO Q12H PRN For Pain Ref 0 08/03/17 Omeprazole 20 Mg Capsule.dr20 Mg PO BID Ref 0 08/03/17 Olanzapine 10 Mg Dkytlm18 Mg PO TID Ref 0 08/03/17 Discontinued Scripts oxyCODONE 5 Mg Tablet5 Mg PO BID PRN For Severe Pain #10 TABLET Ref 0 Prov:Jaden Alicea PA-C 08/06/17 Magnesium Citrate 296 Ml Vxjlhibk027 Ml PO DAILY PRN For Bowel Movement #1 BOTTLE Prov:Jaden Alicea PA-C 08/06/17 History History of ENT Problems?: No HEENT History: Denies:: Abnormal Airway Difficult Intubation Dysphagia Denture Type: None Teeth Condition: Within Normal Limits Hx of Heart Problems?: No Cardiovascular History: Denies:: AICD Atrial Fibrillation Cardiac Surgery Chest Pain Congestive Heart Failure Hypertension Pacemaker Valvular Heart Disease Hx of Respiratory Problem?: No Respiratory History: Denies:: Asthma COPD Tuberculosis Hx Neurologic Problems?: Yes Neurological History: Positive for:: Seizures (on depakote, keppra, phenytoin) Denies:: CVA Hx of GI Problems?: Yes Hx of Problems?: No HX of Peritoneal Dialysis: No Male Hx: Denies:: Prostate Problems Skin History: Denies:: History Skin Disorders? Pressure Ulcers Hx Musculoskeletal Problems?: No Hx of Psycho/Social Problems?: Yes (PTSD with blackouts ) Psycho Social History: Positive for:: Anxiety (PTSD,SUICIDAL IDEATIONS. SWALLOWS HARMFUL OBJECTS WHEN HE BLACKS OUT.) Hx Depression Other Psych Pertinent History: not intentionally sucidal, only happens with PTSD attacks per pt; swallows sharp objects like razor blades and shredded pop cans Hx Surgeries?: Yes (Appy, multiple abdominal surgeries) Hx Any Other Health Problems?: Yes Other History: Positive for:: Hospitalization History Blood Transfusions: Positive for:: Accept Blood Products? Blood Transfusions Hx Diabetes: No Hx Alcohol Use: NoHx Substance Use: No Smoking Status: Current Every Day Smoker Have You Smoked inLast 12 mo: Yes Stop/Bang Treated for Sleep Apnea?: No Do You Have a CPAP Machine?: No S-Snoring: Do You Snore Loudly: No T-Tired: feel tired, fatigued: No O-Obsered: Observed not breath: No P-Blood Pressure: treated: No B- Body Mass Index > 35 kg/m2: Yes A- Age over 50: No N- Neck Large Circumference: No G- Gender Male: No BESSIE Total Score: 1 BESSIE Risk Assessment: Low Risk, <3 Yes Risk Assessment Category Category 1A: Patient has history of documented sleep apnea, and HAS NOT received any narcotic, sedative or anesthesia administration during this stay. Category 1B: Patient has history of documented sleep apnea, and HAS received any narcotic , sedative or anesthesia administration during this stay Category 2: Patient has SUSPECTED Obstructive Sleep Apnea, and HAS received any narcotic , sedative or anesthesia administration during this stay. Category 3: Patient has SUSPECTED Obstructive Sleep Apnea and HAS NOT received narcotic, sedative or anesthesia administration during this stay. Category 4: Outpatient in Procedural Areas with known sleep apnea or who screen positive for High Risk via the STOP/BANG questionnaire. Low Risk, <3 Yes Exam Exam Vital Signs Vital Signs Date Time Temp Pulse Resp B/P Pulse Ox O2 Delivery O2 Flow Rate FiO2 08/09/17 22:00 36.3 86 16 143/94 96 Nasal Cannula 3 08/09/17 21:50 87 21 151/97 97 Nasal Cannula 3 08/09/17 21:45 96 19 125/92 96 Nasal Cannula 3 08/09/17 21:40 88 22 143/85 96 Nasal Cannula 3 08/09/17 21:35 87 22 137/85 97 Nasal Cannula 3 08/09/17 21:30 36.3 88 20 133/87 99 Nasal Cannula 3 08/09/17 20:19 36.8 86 16 140/91 94 Room Air 08/09/17 20:02 36.7 79 18 131/89 94 Room Air 08/09/17 16:35 36.7 83 18 132/85 94 Room Air General Appearance: Alert, Oriented X3, Cooperative, No Acute Distress HEENT/AIRWAY: MP 2 Lungs: Normal Air Movement Heart: Exam Unremarkable Meds/Labs/Diagnostics Admission Meds Current Medications Olanzapine (ZyPREXA Inj) 10 mg ONCE ONCE IM Last administered on 08/09/17 15: 21; Start 08/09/17 at 14:20; Stop 08/09/17 at 14:22; Status DC Morphine Sulfate 2 mg 2 mg STK-MED ONCE .ROUTE Last administered on 08/09/17 16:59; Start 08/09/17 at 16:54; Stop 08/09/17 at 16:56; Status DC Lactated Ringer's (Lr) 1,000 ml @ 120 mls/hr Q8H20M IV Last administered on 21:05; Start 08/09/17 at 20:55; Stop 08/10/17 at 04:54 Fentanyl/ Bupivacaine HCl 100 ml 100 ml STK-MED ONCE EPIDURAL Last administered on 08/09/17 22:11; Start 08/09/17 at 21:49; Stop 08/09/17 at 21:50 ; Status DC Lactated Ringer's (Lr) 1,000 ml @ ud STK-MED ONCE IV Last administered on 08/09 21:59; Start 08/09/17 at 21:59; Stop 08/09/17 at 22:00; Status DC Labs Test 08/08/17 09:52 08/09/17 19:14 Neutrophils (%) (Auto) 56.9% (40-74) Lymphocytes (%) (Auto) 28.2% (14-46) Monocytes (%) (Auto) 8.8% (4-12) Eosinophils (%) (Auto) 4.7% (0-5) Basophils (%) (Auto) 0.4% (0-3) White Blood Count 9.7th/mm3 (3.8-10.1) Red Blood Count 4.74mil/mm3 (4.40-5.80) Hemoglobin 15.0g/dL (13.8-17.2) Hematocrit 42.4% (41.0-50.0) Mean Corpuscular Volume 89.5fL (81-100) Mean Corpuscular Hemoglobin 31.6pg (27.0-35.0) Mean Corpuscular Hemoglobin Concent 35.4% (32.0-37.0) Red Cell Distribution Width 13.1% (12.3-15.4) Platelet Count 266bil/L (150-400) Prothrombin Time 10.0sec (8.1-12.5) Prothromb Time International Ratio 0.94ratio Sodium Level 139mEq/L (134-144) Potassium Level 3.9mEq/L (3.5-5.2) Chloride Level 101mEq/L (97-108) Carbon Dioxide Level 21mmol/L (18-29) Blood Urea Nitrogen 13mg/dL (6-20) Creatinine 0.65mg/dL (0.76-1.27) Estimat Glomerular Filtration Rate 158mL/min (>59) Glucose Level 107mg/dL (60-99) Calcium Level 9.2mg/dL (8.5-10.1) Total Bilirubin 0.2mg/dL (0.0-1.2) Aspartate Amino Transf (AST/SGOT) 40U/L (0-50) Alanine Aminotransferase (ALT/SGPT) 49U/L (0-44) Alkaline Phosphatase 94U/L (25-150) Total Protein 7.7g/dL (6.4-8.4) Albumin 4.4g/dL (3.4-5.0) Hold Reyes Top Tube Received (Received) Plan Impression Patient chart reviewed, patient interviewed and anesthestic plan with risks, benefits, and alternatives discussed, and informed consent obtained. NPO per Anesth. Guidelines: Yes ASA Physical Status: ASA2 Mod Systemic Disease Anesthetic Plan: GA, Epidural (thoracic epidurl for post op pain) Bene/Risks/Altern/Consents: Yes HP Complete Prior to Induction: Yes Jesus Cerda MD Aug 09, 2017 22:37
[2017-08-09] MEDS ORDERED: Dexamethasone 4 mg/mL Inj IVPUSH PRN (22:40)
--- NOTE | 2017-08-09 22:50 | PCM.ANEP1 ---
Post Anesthesia PACU Phase 1 Assessment Vital Signs Vital Signs Date Time Temp Pulse Resp B/P Pulse Ox O2 Delivery O2 Flow Rate FiO2 08/09/17 22:00 36.3 86 16 143/94 96 Nasal Cannula 3 08/09/17 21:50 87 21 151/97 97 Nasal Cannula 3 08/09/17 21:45 96 19 125/92 96 Nasal Cannula 3 08/09/17 21:40 88 22 143/85 96 Nasal Cannula 3 08/09/17 21:35 87 22 137/85 97 Nasal Cannula 3 08/09/17 21:30 36.3 88 20 133/87 99 Nasal Cannula 3 08/09/17 20:19 36.8 86 16 140/91 94 Room Air 08/09/17 20:02 36.7 79 18 131/89 94 Room Air 08/09/17 16:35 36.7 83 18 132/85 94 Room Air Anesthetic Administered: GA Level of Alertness: Awake, talking ARROYO's with Equal Strength: Yes Pain: Yes Pain Scale Score: 5 Nausea or Vomiting: No CV Function & Hydration Stable: Yes Airway Device: Oralpharangeal Airway Oxygen Delivery: Simple Mask Lungs: Normal Air Movement Dermatome Level: Full Sensation PACU Phase 2 Assessment Complications: No Follow up Care: No Patient Instructions Provided: N/A Jesus Cerda MD Aug 09, 2017 22:50
--- NOTE | 2017-08-09 23:09 | NUR ---
Endoscopy/Surgery Pt off OSC unit at 2009 for upper endoscopy due to ingestion of foreign object earlier today at approximately 1400 per day shift RN. PACU called with update at 2199 stating endoscopy unsuccessful. Pt was taken to OR for surgical removal of foreign object at approximately 2209.
[2017-08-10] VITALS (14 sets, daily range): BP systolic 124–159; BP diastolic 66–100; PULSE 23–101; RESP 14–26; O2SAT 91–96
[2017-08-10] MEDS ORDERED: Ondansetron 2 mg/mL 2 mL Inj IVPUSH PRN (00:05)
[2017-08-10] MEDS ORDERED: EPHEDrine Sulfate 50 mg/mL Inj IV PRN (00:05)
[2017-08-10] MEDS ORDERED: Atropine 1 mg/mL Inj IVPUSH PRN (00:05)
--- NOTE | 2017-08-10 00:19 | PCM.SURGOP ---
Surgical Operative Report Date of Service: Aug 09, 2017 Pre Operative Diagnosis Gastric and duodenal metallic foreign bodies Post Operative Diagnosis Jejunal foreign bodies 5 Procedure: Exploratory laparotomy, jejunotomy 3 with extraction of metallic foreign body x 5, closure of jejunotomies, intraoperative esophagogastroduodenoscopy Surgeon and Registered Midwife: Surgeon: Stanford Wang MD Assistants: Jadne Alicea PA-C Indication for Procedure 27-year-old man who had his third episode in 1 week of metallic foreign body ingestion for suicidal intent. This evening he reportedly got ahold of an aluminum can and some scissors, cut the can into fragments, and swallowed it. He underwent upper endoscopy by Dr. Wolff, which identified the foreign bodies in the stomach and the duodenum, but they were unable to be retrieved endoscopically. After discussion of risks and benefits, he agreed to proceed with exploratory laparotomy, retrieval of foreign bodies. Findings: The foreign bodies had migrated into the proximal jejunum by the time of the operation. There were no retained foreign bodies in the duodenum or the stomach , confirmed with esophagogastroduodenoscopy at the completion of the operation. A total of 3 separate enterotomies needed to be made to extract the foreign bodies, which consisted of 5 separate fragments of aluminum can. There had been no perforations. Procedure Details Preoperatively, the patient underwent epidural pain catheter placement. He was then brought to the operating room where he underwent smooth induction of general endotracheal anesthesia. A Grace catheter was placed. A preprocedural timeout was performed according to the SCOAP checklist, and all were found to be in agreement. An upper midline laparotomy was made. Dissection was carried through the subcutaneous tissue until the midline fascia was incised and the peritoneal cavity was entered without difficulty. The stomach was evaluated first. There was no obvious palpable foreign body in the stomach. The duodenum was palpated. Again, it was difficult to palpate, but there was no definite foreign body in the duodenum. The small bowel was then evaluated, and the metallic foreign bodies were easily identified in multiple locations in the proximal jejunum. The entire small bowel was then run from the ileocecal valve proximally to the ligament of Treitz. 5 fragments of metallic foreign body were identified, clustered in 4 separate areas. I was unable to milk the foreign bodies into one location, because they were quite sharp. 2 of the foreign bodies were able to be grouped into one location, allowing for extraction through 3 separate enterotomies. The first enterotomy was located 20 cm from the ligament of Treitz. The next enterotomy was 50 cm distal to that location, and the third enterotomy was 60 cm distal to that location. Each enterotomy was performed by making a transverse opening in the jejunum, extracting the metallic foreign body , and then closing the enterotomy transversely in 2 layers. The inner layer was full-thickness interrupted 3-0 Vicryl suture, and the outer layer was interrupted 3-0 silk Lembert suture. There was no narrowing at the completion of closure. There was no spillage of enteric material. Once all 3 enterotomies had been closed. The small bowel was again run. No other foreign bodies could be appreciated. The stomach was palpated, as was the duodenum, and no other foreign bodies could be appreciated. The midline fascia was closed with running looped 0 PDS sutures 2. The skin was closed with candido. Intraoperative esophagogastroduodenoscopy was then performed. A bite block was introduced to protect the scope. The TIF H1 80 J gastroscope was passed through the mouth to the level of the second portion of the duodenum. There was some areas of mild trauma to the antrum and duodenum, as well as distal esophagus, but no significant lacerations. No foreign body could be identified to be retained in the duodenum, stomach, or esophagus. The scope was withdrawn after the stomach was decompressed, and the procedure terminated. Sterile dressings were applied to the midline incision. At the end of the case all needle and sponge counts were correct 2. The patient was awakened from anesthesia without difficulty, and taken to the recovery room in satisfactory condition, having tolerated the procedure well. Complications There were no periprocedural complications identified. Surgical Specimen Removed: Yes Specimen sent to Pathology: Yes Surgical Specimen description: Jejunal foreign bodies x 5 Anesthetic Plan: GA, Epidural (thoracic epidurl for post op pain) Grafts, Implants: None Output, Estimated Blood Loss: 30 Blood Administration during domingo: No Drains: None Catheters: Urethral 2 Way Stanford Miller MD Aug 10, 2017 00:19
[2017-08-10] MEDS: Sodium Chloride LOK Flush 10 mL Syringe IVFLUSH SCH ×3 (00:30→10:21)
[2017-08-10] MEDS: fentaNYL-PF 50 mCg/mL 2 mL Inj IVPUSH PRN ×2 (00:30→00:39)
--- NOTE | 2017-08-10 03:49 | CONS ---
[address] [address] CONSULTATION REPORT PATIENT: HORACIO CRUZ : 1990 MR#: [id number] ADMIT: 08/08/2017 JOB ID: [id number] DATE OF SERVICE: 08/09/2017 CHIEF COMPLAINT: Foreign body ingestion. HISTORY OF PRESENT ILLNESS: I am asked to evaluate Mr. Cruz at the request of Dr. James Ruiz for evaluation of metallic foreign bodies in the stomach and duodenum, not retrievable by endoscopy. His history is obtained from the electronic medical record because he was recently sedated, having just completed upper endoscopy. He had has had his third documented metallic foreign body ingestion within the past weeks. On August 02, he underwent a laparoscopy with lysis of adhesions for facilitation of retrieval of gastric and small bowel foreign bodies. He was then discharged and he promptly swallowed metallic razor blades which were able to be retrieved endoscopically from the stomach. He reportedly was still in the hospital with a sitter and managed to cut up what appeared to be an aluminum can and swallowed fragments of that. Gastroenterology performed upper endoscopy and verified foreign body in his stomach and second portion of his duodenum, but was unable to retrieve the fragments in that fashion. There was some endoscopic trauma to the duodenum and further attempts were aborted. Also, the gastric fragments were too large to fit within the endoscopic agarwal, and again were felt to be unsafe to be removed endoscopically. He is not complaining of abdominal pain. He has no nausea. PAST MEDICAL HISTORY: Multiple foreign body ingestions, PTSD, multiple suicide attempts. PAST SURGICAL HISTORY: Appendectomy, right scalp shrapnel excision, right abdominal shrapnel excision, laparoscopy with lysis of adhesions. HOME MEDICATIONS: Include: 1. Zyprexa. 2. Depakote. 3. Phenytoin. 4. Oxycodone. SOCIAL HISTORY: He is a smoker. Denies alcohol and illicit drug use. FAMILY HISTORY: Noncontributory. REVIEW OF SYSTEMS: A 10-point review of systems negative except as described in history of present illness. Specifically denies blood in the stool or black or tarry stools. PHYSICAL EXAMINATION: Temperature 36.3, pulse 86, blood pressure 143/94, saturation 96% on 3 liters nasal cannula. General: He is resting on a stretcher, anxious, otherwise in no distress. HEENT: Sclerae anicteric. Mucous membranes moist. Neck: No lymphadenopathy. Chest: Clear to auscultation bilaterally. Heart: Regular rate and rhythm. No murmurs. Abdomen is obese, but soft, nondistended. He has recent laparoscopy scars with no erythema. There are no hernias. Extremities: No edema. Neuro: No deficits. Psychiatric: Affect is anxious. LABORATORIES: White count 9.7, hematocrit 42.4, platelets 266, creatinine 0.65, glucose 107, albumin 4.4. ASSESSMENT AND PLAN: A 27-year-old man with metallic foreign body ingestion to the stomach and duodenum, non retrievable by endoscopy. The plan is to proceed tonight to the operating room for an exploratory laparotomy, gastrotomy, duodenotomy, retrieval of foreign body with closure. Risks were discussed with him as well as with his parents over the phone and informed consent was obtained.
[2017-08-10] MEDS: fentaNYL 2 mCg/mL-Bupiv 0.125% 100 ML in IV Premix 1 EACH EPIDURAL SCH ×3 (04:37→22:06)
[2017-08-10 05:09] LABS: BASOPHILS % (AUTO) 0.1 % (0-3); EOSINOPHILS % (AUTO) 0 % (0-5); MONOCYTES % (AUTO) 6.2 % (4-12); Mean Corpuscular Hemoglobin 31.4 pg (27.0-35.0); Mean Corpuscular Volume 90.3 fL (81-100); NEUTROPHILS % (AUTO) 87.2 % (40-74); Platelet Count 260 bil/L (150-400)
[2017-08-10] MEDS: Ondansetron 2 mg/mL 2 mL Inj IVPUSH PRN ×2 (06:36→13:17)
[2017-08-10] MEDS ORDERED: Pantoprazole 40 mg ER24 Tablet PO SCH (07:30)
[2017-08-10] MEDS: Phenytoin 100 mg ER Capsule PO SCH ×2 (08:03→20:58)
--- NOTE | 2017-08-10 09:42 | PROG NOTE ---
[address] [address] PROGRESS NOTE PATIENT: HORACIO ALEMAN : 1990 MR#: [id number] ADMIT: 08/08/2017 JOB ID: [id number] DATE: 08/10/2017 SUBJECTIVE: The patient is now approximately 9 hours status postoperative intervention for ingested foreign bodies. He is seen at the bedside with his parents. His vital signs are stable. He states that he feels well. His abdominal examination is benign though he is a bit distended. LABORATORIES: This morning show a white count of 21, hematocrit of 42. Normal chemistries. Glucose of 116. IMPRESSION AND PLAN: Stable postop. We will follow his white count which should hopefully trend down. I have had discussion with him and his parents that covers the same subject that I believe Dr. Wang talked to them on the phone last night about. It seems that the patient's foreign body ingestion frequency is accelerating as well as taking on a character of self-harm. Currently, he does not endorse wanting to hurt himself, though according to the parents, he does carry a previous diagnosis of borderline personality disorder. The patient has been seen by the psychiatrist here and prior to this episode with a recommendation for pursuing inpatient hospitalization at [facility]. I will ask Dr. Bean to pursue either this or inpatient hospitalization once he is medically stable.
--- NOTE | 2017-08-10 10:44 | PCM.PNMED ---
Subjective Date of Service Aug 10, 2017 Subjective Patient was taking to OR earlier this morning to remove for a normal from his stomach and duodenum. EGD was attempted but was not successful. Surgery, psychiatry, GI are on the case. Exam Vital Signs Vital Sign - Last Date Time Temp Pulse Resp B/P Pulse Ox O2 Delivery O2 Flow Rate FiO2 08/10/17 04:18 36.6 98 16 124/74 95 Nasal Cannula 3.00 Intake and Output 08/09/17 08/09/17 08/10/17 Cumulative From/Thru 15:00 23:00 07:00 08/08/17 03:46 - 08/10/17 06:23 Intake Total 41 ml 1312 ml 0 ml 2803 ml Output Total 600 ml 1305 ml 3325 ml Balance 41 ml 712 ml -1305 ml -522 ml Intake Oral 712 ml 0 ml 1312 ml IV Total 41 ml 600 ml 1491 ml Output Urine Total 600 ml 1275 ml 3295 ml Estimated Blood Loss 30 ml 30 ml # Voids 1 # Bowel Movements 0 0 0 Exam GENERAL: Alert, not in distress, HEAD: atraumatic, normocephalic EYES: EOMI, anicteric SKIN: Skin color normal, turgor normal. No visible rashes EAR, NOSE, MOUTH, THROAT: Lips, oral mucosa, tongue are moist, pink, no lesions. NECK: no jugulovenous distention; supple ROM normal. RESPIRATORY: Lungs clear to auscultation. Good diaphragmatic excursion. CARDIAC: normal S1 and S2; no rubs, murmurs, or gallops; regular rate and rhythm ABDOMEN: Abdomen soft, mildly tender. BS normal. MUSCULOSKELETAL: ROM full, muscles are not tender EXTREMITIES: no pitting edema in LE, no new deformities or skin discoloration. NEURO: Alert, oriented X 3, Cranial nerves II-XII intact, Grossly normal motor function. PULSES: 2+ radial, 2+ carotid REVIEW OF SYSTEMS: GENERAL: no malaise, no fevers., SEE HPI HEENT: Negative for frequent or significant headaches All other reviewed and negative other than HPI. IVs and Medications Medications Reviewed: Medications were reviewed in detail Lab and Diagnostics Result Diagram: 08/10/17 0501 08/10/17 0501 X-Rays, CTs and MRIs CT with contrast, no evidence of perforation. Results faxed to floor and placed in patient's physical chart. Assessment & Plan Patient is a 27 y/o male with past medical history of PTSD with prior FB ingestions who presented to the hospital after ingesting two razor blades and one needle. GI was consulted and did EGD when three foreign bodies (two disposable razor blade cartridges and a needle) were successfully removed from the stomach. 08/09/17 patient swallowed parts of the aluminum can, CT showed these parts in the stomach, GI was consulted and did EGD but was not able to remove these parts. Surgery was consulted and patietn underwent exploratory laparotomy, gastrotomy, duodenotomy, retrieval of foreign body with closure on . Once medicaly stable he will be transferred to psych facility. Patient is at high risk of harming himself. He is 1:1, he can not leave the hospital AMA. Acute intentional ingestion of metallic foreign bodies, s/p EGD 08/08/17, 08/09/17 , s/o laparotomy and foreign object removal 08/09/17 - stable - GI, Surgery consulted - Psychiatrist evaluated the patient Plan - Morphine IV for pain Leukocytosis - probably secondary to recent surgery - monitor History of PTSD with previous SI attempts - psychiatry consulted -Continue with meds as per pschiatry DVT PROPHYLAXIS: SCD Code status: full code Disposition: discharge to psych facility after patient improves Plan of care discussed with treatment team; Labs, radiology tests, reviewed. GI Prophylaxis: H2 tiffanie Resuscitation Status: CPR: Attempt Resuscitation Dane Chicas MD Aug 10, 2017 10:44 Dane Chicas MD Aug 10, 2017 10:44
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
--- NOTE | 2017-08-10 13:56 | ENDO ---
[address] [address] ENDOSCOPY PROCEDURE PATIENT: HORACOI ALEMAN : 1990 MR#: [id number] ADMIT: 08/08/2017 JOB ID: [id number] DATE: 08/09/2017 PROCEDURE: Esophagogastroduodenoscopy. INDICATION: Foreign body ingestion. INSTRUMENT USED: GIF H 180 J. Please see anesthesia report for details regarding ASA classification, Mallampati score, and general anesthesia. PROCEDURE DETAILS: After informed consent was obtained, the patient was brought to the gastrointestinal suite where he was placed under general anesthesia and placed in a left lateral decubitus position. The standard upper endoscope was then introduced through the bite block and advanced gently through the esophagus into the gastric body. On initial examination of the proximal gastric body, there was what appeared to be a green metallic foreign body that was rectangular in shape that measured approximately 2-3 cm x 1 cm. Next, there was a second larger piece of metal in the antrum that measured approximately 3 x 3 cm. Next, we gently advanced the scope through the pylorus and in the second portion of the duodenum, there were two pieces of metal that were noted the proximal piece of foreign body appeared to be 2 cm x 3 cm. The size of the distal duodenal foreign body was difficult to estimate secondary to incomplete visualization. The most proximal piece of metal we were able to grasp with a standard biopsy forceps and was able to withdraw this back to the duodenal bulb, but beyond that we were unable to remove it more proximally as the foreign body was larger than the pyloric orifice. At this point, that piece of metal was dropped. We then focused our attention to the metal piece in the antrum and then we did successfully grab the piece, but we were unable to pull the metal piece into the protective rubber agarwal that was placed over the scope. This piece was then dropped and we focused our attention to the piece of metal in the proximal stomach which we then attempted to grab. Again this piece was larger than the width of the agarwal and therefore, we were unable to pull the piece into the protective agarwal. At this point, we aborted the procedure and the scope was withdrawn. IMPRESSION: Multiple foreign bodies in the stomach and duodenum. General Surgery was consulted as we were unable to remove these pieces of metal endoscopically. RECOMMENDATIONS: 1. Continue n.p.o. status. Please have a sitter with the patient and ensure that he is does not have access to any foreign objects that he can place in his mouth. 2. Psychiatry consult has already been called by the primary team. COMPLICATIONS: None. ESTIMATED BLOOD LOSS: Zero. MTDD
--- NOTE | 2017-08-10 15:02 | PROG NOTE ---
[address] [address] PROGRESS NOTE PATIENT: HORACIO ALEMAN : 1990 MR#: [id number] ADMIT: 08/08/2017 JOB ID: [id number] DATE: ANESTHESIA EPIDURAL FOLLOWUP NOTE: The patient is a 27-year-old male, postop day number one, status post open laparotomy with removal of foreign bodies in stomach and duodenum. SUBJECTIVE: I went to see the patient this afternoon. He was lying in bed and appeared comfortable. He denied any itching. He reported some mild nausea but believe that it is relieved with p.r.n. ondansetron. Currently n.p.o. but able to tolerate sips of water. Has a sitter present. He has been able to ambulate in hallway multiple times without any difficulty. OBJECTIVE: Vital signs stable. Afebrile. Currently has a thoracic epidural running bupivacaine 0.125% with fentanyl 2 mcg/mL running at a basal rate of 10 mL an hour with q.15 minute bolus. Also receiving morphine 1-2 mg IV q.2 h. p.r.n. for breakthrough pain, as well as lorazepam and clonazepam. Epidural site is clear, dry, intact, and nontender. The patient has bilateral motor extremity strength 5/5. The patient's pain assessment score is 8/10 but appears to be comfortable despite that level. ASSESSMENT AND PLAN: After a long discussion with the patient's nurse, we decided to maintain his current pain regimen as it is. Some thought of slowly starting to wean down the epidural basal rate tomorrow after we see how the patient does overnight tonight. We will continue to follow this patient.
[2017-08-10] MEDS ORDERED: [UNRECOGNIZED DRUG - REMARK] IV PRN (15:40)
--- NOTE | 2017-08-10 17:06 | NUR ---
Mentation Pt has ambulated halls several times this morning with 1:1 sitter. Denies any SI today but d/t Hx pt will have 1:1 sitter in room at bedside at all times. Pt has been appropriate and makes needs known. Epidural continues which seems to provide some pain control but not complete tolerable control. 1-2mg Morphine given to help control pain. Anxiety at times and pt does pace room when this occurs but seems to have decreased since this morning. Sitter to continue, Care continues
--- NOTE | 2017-08-10 22:37 | NUR ---
Charting See paper charting starting @ 0000 08/11/17. Epic Go Live transition.
--- NOTE | 2017-08-10 22:43 | NUR ---
Activity/Pain Pt continues to have pain 7 to 10 out of pain to abdominal region. Receiving continuous/bolus epidural as well as 1-2mg IV Morphine for pain management. Pt on 2L NC HS, SAO2 mid 90's. Cooperative and appropriate with cares. Midline dressing intact, minimal sero-sanguineous drainage. Epidural site C/D/I. Pt drowsy, anxiety appears to be under control at this time. Receiving Clonazepam PO day shift and has Ativan PRN, has not needed/requested tonight. Sitter remains in pt room for pt safety.
--- NOTE | 2017-08-19 14:43 | PATH ---
SURGICAL PATHOLOGY Attending Physician:Clay Winston CASE STATUS: Signed Out PATIENT NAME: HORACIO ALEMAN PID: [id number] : 1990 DATE COLLECTED:08/09/2017 00:00 SPECIMEN: Foreign Body CLINICAL HISTORY: INGESTION OF FOREIGN BODY 1.) JEJUNAL FOREIGN BODIES FINAL DIAGNOSIS: Jejunum, Foreign Body: Gross only diagnosis. ICD 10: T18.3XXD GROSS DESCRIPTION: The specimen is received unfixed, labeled with the patient's name, sublabeled as jejunal foreign body, and consists of multiple folded pieces of a [employer] aluminum can (5.5 x 5.0 x 1.5 cm in aggregate). The specimen is not suitable for histological analysis; therefore, no sections are submitted. 08/10/17 ICD-9 CODES: CPT CODES: 1: 08088 Electronically Signed Out Litzy Alvarez MD [facility] Pathology [facility] [address], [place] [address] Technical component performed at [facility], [address] [place] [address] [address], [place], [address]
== END 2017-08-11 01:30 | disposition admitted as inpatient to this hospital (09) | DRG 951 ==
LOC: INTOOBSV 03:29 → OBSVTOIN 03:29 → OSC 03:29
PROVIDERS: ADMIT Internal Medicine; ATTEND Internal Medicine
DX: R69 Illness, unspecified (principal)